=== PATIENT | female | born 1945 | race Caucasian/White ===

== ENCOUNTER → 2018-10-18 11:42 | Outpatient (CLI) | payer MEDICARE, SELFPAY ==
--- NOTE | 2018-10-18 | DI.MRI.S_ITS ---
PROCEDURE: MR LUMBAR SPINE WO CON INDICATIONS: LUMBAR SPINE PAIN TECHNIQUE: Noncontrast sagittal T1 spin echo and T2 fast echo, coronal T2, sagittal STIR, axial T1 and T2 fast spin echo through the lumbar spine. COMPARISON: [facility], MR, L-SPINE WITH AND WITHOUT CONTR, 06/07/2011, 14:18. [facility] Outside Film, RG, SPINE LUMB 2 OR 3VW, 06/22/2018, 14:35. FINDINGS: Image quality: Excellent. Alignment and Curvature: 5 lumbar type vertebral bodies are present by plain film. There is moderate to severe leftward curvature of the mid/upper lumbar spine. There is mild, grade 1 retrolisthesis of T12 on L1, and L1 on L2. Mild grade 1 anterolisthesis of L4 on L5 and L5 on S1. Bone Marrow: Marrow is of normal overall signal. No acute vertebral body compression fractures. Left-sided L4-L5 pars interarticularis defect. Bilateral L5-S1 pars interarticularis defects. No change in atypical L5 hemangioma. Mild reactive signal within the endplates adjacent to the T10-T11, T11-12, T12-L1, L1-L2, L2-L3, L3-L4, and L4-L5 intervertebral discs is present, increased from the prior examination. Increased, moderate reactive signal within the endplates adjacent to the L5-S1 intervertebral disc is present. Spinal Cord: Conus medullaris terminates at the L1-L2 disc space level. Visualized cord demonstrates normal signal and size. Paraspinous Soft Tissues: No paravertebral masses. L1-L2: Severe disc height loss and desiccation. Mild diffuse disc bulge. Mild bilateral facet and ligamentum flavum hypertrophy. Moderate canal stenosis. Severe subarticular right and mild subarticular left foraminal stenosis. No change. Right-sided intraforaminal L1 nerve root flattening. L2-L3: Moderate disc height loss and desiccation. Mild diffuse disc bulge/osteophyte with superimposed broad-based left lateral protrusion. Moderate bilateral facet and ligamentum flavum hypertrophy. Increased, severe canal stenosis. No change in moderate subarticular left and severe subarticular right foraminal stenosis. Right intraforaminal L2 nerve root flattening. No change. L3-L4: Moderate disc height loss and desiccation. Mild diffuse disc bulge. Moderate bilateral facet and ligamentum flavum hypertrophy. Increased, severe canal stenosis. No change in moderate subarticular left foraminal stenosis. Increased, severe subarticular right foraminal stenosis with intraforaminal L3 nerve root flattening on the right. L4-L5: Moderate disc height loss and desiccation. Moderate diffuse disc bulge with superimposed small broad-based left far lateral protrusion/osteophyte. Moderate bilateral facet and ligamentum flavum hypertrophy. Increased, severe canal stenosis. Increased, severe subarticular left foraminal stenosis. No change in moderate subarticular right foraminal stenosis. Flattening deformity of the left L4 nerve root within the neural foramen. L5-S1: Severe disc height loss and desiccation. Mild diffuse disc bulge. Moderate bilateral facet hypertrophy. No significant canal stenosis. Increased, severe subarticular foraminal stenosis bilaterally with new bilateral L5 nerve root flattening. IMPRESSION: 1. Leftward curvature of the lumbar spine. 2. Left-sided L4-L5 and bilateral L5-S1 pars interarticularis defects. 3. Multilevel spondylolistheses. 4.Multilevel degenerative disc and facet disease, as well as ligamentum flavum hypertrophy and epidural lipomatosis. 5. Multilevel canal stenoses, worst at L2-L3, L3-L4, and L4-L5, where there are severe canal stenoses present. 6. Multilevel foraminal stenoses, worst at L1-L2 on the right, L2-L3 on the right, L3-L4 on the right, L4-L5 on the left, and L5-S1 bilaterally, where there is associated intraforaminal nerve root flattening. Recommend correlation with clinical symptoms to ascertain relevance of these findings. Dictated by: Moy Mendez M.D. on 10/18/2018 at 13:31 Approved by: Moy Mendez M.D. on 10/18/2018 at 13:47
== END ==
PROVIDERS: PCP Family Medicine Geriatric Medicine; Visit Provider Orthopaedic Surgery Orthopaedic Surgery of the Spine
DX: M54.5 Low back pain (principal); M43.06 Spondylolysis, lumbar region; M43.07 Spondylolysis, lumbosacral region; M51.36 Other intervertebral disc degeneration, lumbar region; M51.37 Other intervertebral disc degeneration, lumbosacral region; M48.061 Spinal stenosis, lumbar region without neurogenic claudication; M48.07 Spinal stenosis, lumbosacral region; E88.2 Lipomatosis, not elsewhere classified
CPT/HCPCS: 72148

== ENCOUNTER → 2018-12-24 19:27 | Outpatient (REF) | payer MEDICARE, SELFPAY ==
[2018-12-24 19:48] LABS: Add Manual Diff / Slide Review NO; Basophils Absolute Auto 100 /uL (0-100); Basophils Percent Auto 1.2 % (0-2); Eosinophils Absolute Auto 100 /uL (0-450); Eosinophils Percent Auto 1.4 % (2-4); Hematocrit 36.8 % (36-46); Hemoglobin 11.9 g/dL (12.0-16.0); Lymphocytes Absolute Auto 1200 /uL (1100-4500); Lymphocytes Percent Auto 19.1 % (25-40); Mean Corpuscular HGB Conc 32.4 % (30-36); Mean Corpuscular Hemoglobin 26.8 PG (26-34); Mean Corpuscular Volume 82.7 fL (80-100); Monocytes Absolute Auto 400 /uL (0-900); Monocytes Percent Auto 6.2 % (3-14); Neutrophils Absolute Auto 4700 /uL (1500-7000); Neutrophils Percent Auto 72.1 % (50-75); Platelet Count 298 X10^3/uL (150-400); Red Blood Cell Count 4.45 X10^6/uL (4.0-5.2); White Blood Cell Count 6.5 X10^3/uL (4.5-11.0)
[2018-12-24 20:00] LABS: Blood Urea Nitrogen 18 mg/dL (7-17); Calcium 9.2 mg/dL (8.4-10.2); Carbon Dioxide 25 mmol/L (22-32); Chloride 97 mmol/L (98-107); Estimated Glomerular Filt Rate > 60.0 mL/min (>60); Glucose 90 mg/dL (80-110); HEMOLYSIS < 15 (0-50); Potassium 4.4 mmol/L (3.4-5.1); Sodium 132 mmol/L (137-145)
== END ==
LOC: LAB 19:27
PROVIDERS: PCP Family Medicine Geriatric Medicine; Visit Provider Family Medicine Geriatric Medicine
DX: Z01.812 Encounter for preprocedural laboratory examination (principal)
CPT/HCPCS: 80048; 85025

== ENCOUNTER 2019-01-01 06:21 | Inpatient (IN) | payer MEDICARE, SELFPAY ==
[2018-12-18 10:04] VITALS: BMI 29.2
[2019-01-01] VITALS (19 sets, daily range): BP systolic 85–164; BP diastolic 47–77; PULSE 69–100; RESP 14–18; TEMP 35.8–36.9; O2SAT 84–100; BMI 29.2
[2019-01-01] MEDS: LACTATED RINGERS 1,000 ML 42 ML IV ×3 (07:00→13:08)
--- NOTE | 2019-01-01 07:32 | PM.PREOP ---
Pre-operative Note Interval Note History & Physical reviewed/Exam performed by Physician: Yes Changes to H&P: No
--- NOTE | 2019-01-01 07:41 | P.OP_ITS ---
Operative Date/Time/Diagnoses Date of procedure: 01/01/19 Time of procedure: 14:35 Pre-op diagnosis: Lumbar stenosis with radiculopathy lumbar scoliosis Post-op diagnosis: same Procedure & Clinicians Procedure: L1-2, L2-3, L3-4 anterior fusion with cages L4-5, L5-S1 TLIF (post/posterior innerbody fusion) with cages screws L3, L4, L5, S1 L34, L45, L5S1 laminectomies microscope icbg aspirate placement of epidural catheter placement of epidural catheter Same procedure as scheduled: Yes Indications: 73 year old female with intractable pain from stenosis. They had failed conservative management and requested operative intervention. Risks and benefits of surgery were discussed and appropriate consents were obtained. Surgeon: Osmar Craven Life Cycle Assessment Analyst: Lakeisha Hinkle Anesthesia Type: General Operative Notes Findings: none Closure Type: primary Specimen(s): none sent Prosthetic devices, grafts, tissues, transplants, or devices: NuVasive XLIF cages NuVasive MAS Reline screws Globus Rise cage Applied: catheter Estimated Blood Loss (mL): 50 Blood products transfused: none Procedure in detail: Patient was brought to the operating room and intubated on the table. Time-out was performed. They were then rolled over to the lateral decubitus position with the [id number]. The table was bent and they were taped down in the correct position. X-rays were taken to confirm a true AP and lateral. Preoperative antibiotics were given. The left flank was prepped and draped in standard sterile fashion. Using fluoroscopy, a 3 cm incision was made above the iliac crest. We bluntly dissected down with Metzenbaum scissors and split the 3 abdominal muscle layers. We dissected out the retroperitoneal space and using finger guidance, brought our 1st dilator down to the psoas muscle. Using neuromonitoring and fluoroscopy, we placed it through the psoas onto the L34 disc space in an anterior position and gradually pulled the dilator posteriorly along the disc space. We placed our guidewire and measured our depth for the retractor. We then dilated with the next 2 dilators and then placed our retractor over the dilators. Position was confirmed with fluoroscopy and the retractor was locked down to the bar. We opened up the retractor and checked with neuro monitoring. We then placed the harish and again checked with neuro monitoring. The retractor was opened furt her and the ALL retractor was placed. An annulotomy was performed. We then performed a complete diskectomy with ring curette, pituitary, box osteotome. A Milton was advanced across the disc space under fluoroscopy to release the lateral annulus on the opposite side. We then used sequentially larger trials and confirmed under fluoroscopy. The trials kept going anteriorly and it appeared that part of the ALL had been released. An XLIF cage was packed with Osteocel bone graft and impacted into the L34 disc space with fluoroscopy for the anterior fusion at this level. While placing this, care was taken to place the cage posterior as possible. We then removed the bend in the table and the cage was solid.The wound was irrigated. The retractor was closed down. The harish was removed. We carefully removed the retractor with direct visualization to make sure there was no neurovascular or abdominal injury. Final x-rays were taken. We then moved up a level to L2-3. We used monitoring and placed our dilators. We then placed our retractor and opened it up. We performed a complete diskectomy at this level including the lateral release on the opposite side. We trialed and placed another cage with bone graft for the anterior fusion at L2-3. The wound was irrigated. The retractor was closed and removed under direct visualization. We then moved up to the L1-2 level. We used monitoring and placed our dilators. We then placed a retractor and opened it up. We again performed a complete diskectomy at this level including the lateral release on the opposite side. We trialed and placed another cage with bone graft for the anterior fusion at L1-2. The wound was irrigated. The retractor was closed removed under direct visualization. Final x-rays were taken. The muscle fascia was closed, superficial tissue was closed. The skin was closed. Sterile dressing was placed. The patient was then rolled over on the well-padded prone position on the Soham table. The back was prepped and draped in the standard sterile fashion. Using fluoroscopy, a 8 cm longitudinal incision was made on the left side of the midline as we wanted to do our facetectomies and get as much left-sided release as possible for the curve correction later. We used Bovie to come down to and split the fascia. We then percutaneously placed our Jamshidi needles down the left pedicles of L3, L4, L5, and S1 using fluoroscopy and neural monitoring. These were changed out the guidewires. We tapped and then placed our screw shanks. We opened up the retractor at L5-S1. The soft tissue was cleared out of the gutter as well as over the lamina. We used a bur to decorticate the transverse process of L4, L5, and the sacral ala. We brought in the microscope. A combination of bur and Kerrison rongeur as were used to perform a laminectomy at this level. She had massive facet hypertrophy and par hypertrophy that had to be decompressed. We carefully decompressed across the midline and cleared out the neural foramen. We performed a partial facetectomy to open up foramen. At the end we could sweep the ball probe cephalad, caudally, and out the foramen was open. This was separate and distinct from the approach for the TLIF as we had to decompress the central canal. We then began the interbody work. The remainder of the facetectomy was performed on the right-hand side at L5-S1. The dura was carefully retracted medially as well as the exiting nerve root was retracted. Bipolar was used for hemostasis on the disc and then an annulotomy was performed. We used a combination of pituitaries, paddles, Shruti, and curettes to perform a complete diskectomy at L5-S1. We then packed bone graft into the disc space and then placed our globus Rise cage and expanded it under fluoroscopy. This was packed with more bone graft. This completed the interbody portion of the TLIF at L5S1. We then moved up a level. Again, using the microscope a laminectomy was performed at this L4-5 level clearing out past the midline as well as out the neural foramen. This was separate and distinct from just a TLIF approaches we had to decompress the entire canal which also had a massive facet cyst that had to be carefully dissected off the facet adding much more time and complexity, not just make a small approach to get in with our cage. We then began the interbody work. The remainder of the facetectomy was performed at L4-5. We carefully retracted the dura and the exiting nerve root and prepped the disc. A scalpel used to perform an annulotomy. We used pituitaries, paddles, Shruti, and curettes to perform a complete diskectomy at L4-5. This was packed with bone graft and then another globus Rise cage was inserted and expanded under fluoroscopy. This was packed with more bone graft. This completed the interbody portion of the TLIF at L45. We then went up to the L3-4 level. Our retractors were shifted over. We again used the microscope for the laminectomy. We used a bur and Kerrison to perform a laminectomy at L3-4. We could sweep past the midline to the opposite side and clear out the neural foramen. In the end, everything was open. An epidural catheter was primed with 4mL of 0.5% bupivacaine, 100 mcg fentanyl, 4 mg Duramorph, 1 mg Stadol. The dura at L3 was depressed under the cephalad lamina with a ball probe and the epidural catheter was gently advanced 6 cm cephalad. The retractor was removed. The wound was copiously irrigated. The Tulip heads were put on the screws and a ernesto was placed from L3 through S1 for posterior stabilization for now. A small stab incision was made over the PSIS and a Jamshidi needle was placed into the iliac crest and several mL of bone marrow was aspirated. This was mixed with our locally harvested bone graft as well as the remaining Osteocel and placed in the posterolateral gutter for posterolateral portion of the TLIF fusion at L45 and L5S1. The fascia was then closed. The epidural was then injected without resistance. The catheter was pulled and we closed more over the fascia. We then went to the right side. Using fluoroscopy and neural monitoring, a 3cm incision was made over L3-4. We percutaneously placed Jamshidi needles down the right pedicles of L3 and L4. We switched the guidewires, tapped and placed our screws. A ernesto was measured and placed and locked down. This was done for extra stability for the L3-4 cage. Vancomycin powder was placed in the wound. The superficial and skin were closed. Sterile dressing was placed. The patient was then rolled over, extubated, brought to the recovery room with no complications. Complications: none Condition: stable Disposition: PACU Plan for aftercare: Inpatient. Up with physical therapy. Plan to return in 2 days for the 2nd half of the surgery with the remainder of the instrumentation and posterior fusion.
[2019-01-01] MEDS: CEFAZOLIN 2 GM/100 ML FROZ.PIGGY IV ×3 (07:53→20:19)
--- NOTE | 2019-01-01 08:30 | SUR.OPER ---
Right lateral on padded OR table. Head on pillow, gel axillary roll, pillow to support left arm. Legs flexed, pillows between legs, gel pad under down leg and ankle. Multiple passes of 3 inch cloth tape across shoulder, hip, upper and lower legs to secure patient on OR table.
[2019-01-01] MEDS: SODIUM CHLORIDE 0.9% 1,000 ML, GENTAMICIN 80 MG IRR ×2 (08:45)
[2019-01-01] MEDS: THROMBIN (RECOMBINANT) 5,000 UNIT VIAL 5000 UNIT TOP (08:46)
[2019-01-01] MEDS: VANCOMYCIN 1,000 MG VIAL 1000 MG TOP (08:50)
[2019-01-01] MEDS: BUPIVACAINE 0.5% (PF) 4 ML, MORPHINE-PF 4 MG, BUTORPHANOL 1 MG, fentaNYL 100 MCG INJ (08:51)
--- NOTE | 2019-01-01 12:43 | SUR.OPER ---
Prone on spine table, head in foam head support, padded chest and pelvic supports, gel pad at knees, lower legs supported by pillows; nipples, genitalia and toes free of pressure, arms secured on foam padded arm boards at <90 degrees abduction. Tape over blanket at thigh secured to table.
--- NOTE | 2019-01-01 14:46 | DI.RAD.S_ITS ---
PROCEDURE: XR LUMBAR SPINE MIN 4V INDICATIONS: L1-2M L2-3, L3-4 XLIF---L4-5, L5-S1 TLIF TECHNIQUE: 4 views of the lumbar spine acquired. COMPARISON: [facility] Outside Film, RG, SPINE LUMB 2 OR 3VW, 06/22/2018, 14:35. FINDINGS: Intraoperative fluoroscopy images demonstrate discectomy and posterior fusion at L3-L4, L4-L5 and L5-S1. Disc prosthesis are noted at L4-L5 and L5-S1. There is also discectomy at L1-L2 and L2-L3. IMPRESSION: Discectomy and posterior fusion in lumbar spine. Dictated by: Arian Lambert M.D. on 01/01/2019 at 15:12 Approved by: Arian Lambert M.D. on 01/01/2019 at 15:15
[2019-01-01] MEDS: fentaNYL 100 MCG/2 ML INJ 50 MCG IV ×2 (14:55→15:00)
[2019-01-01] MEDS: HYDROMORPHONE 2 MG INJ 0.5 MG IV ×4 (15:15→15:41)
[2019-01-01] MEDS: HYDROMORPHONE 1 MG INJ 0.5 MG IV ×2 (16:08→18:07)
[2019-01-01] MEDS: LACTATED RINGERS 1,000 ML 125 ML IV (16:39)
--- NOTE | 2019-01-01 16:43 | PC.NURSE ---
Addendum entered by Mariaa Montoya R.N. 01/01/19 23:31: Pt tolerating PO [place], pain well controlled. Reviewed home gabapentin dosing. 300mg + 100mg caps QID scheduled, updated. Ivet in room. Updated on POC. Original Note: Admission Pt arrived from PACU after extended orthopedic procedure, Pt arrives in stretcher, drowsy but rates pain 9/10 to back. Feels the IV pain control from PACU helped but is not lasting at all what she felt it should. CMS intact, weakness to BLE and pain with movement. 2L o2 in place for hypxia after narcotics. No home O2 use. Denies nausea, declines snack. Ice chips and ice water at bedside. Friend rooming in, dressing to Back x2 CDI. IVF started, per Emar. BA active.
[2019-01-01] MEDS: HYDROCODONE/ACET 5/325 TABLET 2 TAB PO (20:17)
[2019-01-01] MEDS: CELECOXIB 200 MG CAPSULE 400 MG PO (20:19)
[2019-01-01] MEDS: DOCUSATE 100 MG CAPSULE PO (22:31)
[2019-01-02] VITALS (7 sets, daily range): BP systolic 132–146; BP diastolic 66–82; PULSE 88–99; RESP 14–20; TEMP 36.2–37.3; O2SAT 92–100
[2019-01-02] MEDS: HYDROMORPHONE 0.5 MG INJ 0.2 MG IV (00:03)
[2019-01-02] MEDS: HYDROCODONE/ACET 5/325 TABLET 2 TAB PO ×3 (00:47→10:55)
[2019-01-02] MEDS: LACTATED RINGERS 1,000 ML 125 ML IV (01:10)
[2019-01-02] MEDS: ONDANSETRON 4 MG/2 ML INJ IV ×3 (02:10→19:08)
[2019-01-02] MEDS: CEFAZOLIN 2 GM/100 ML FROZ.PIGGY IV (03:52)
[2019-01-02 06:03] LABS: Hematocrit 27.1 % (36-46); Hemoglobin 9.1 g/dL (12.0-16.0)
[2019-01-02] MEDS: LEVOTHYROXINE 50 MCG TABLET PO (06:16)
[2019-01-02] MEDS: GABAPENTIN 400 MG CAPSULE PO ×4 (08:05→20:37)
[2019-01-02] MEDS: VITAMIN B COMPLEX 1 CAPSULE 1 CAP PO (08:05)
[2019-01-02] MEDS: ASPIRIN EC 81 MG TABLET PO (08:05)
[2019-01-02] MEDS: CHOLECALCIFEROL (VITAMIN D3) 1,000 UNIT TABLET 1000 UNIT PO (08:05)
[2019-01-02] MEDS: CELECOXIB 200 MG CAPSULE PO ×2 (08:05→20:36)
[2019-01-02] MEDS: hydroCHLOROthiazide 12.5 MG CAPSULE PO (08:05)
[2019-01-02] MEDS: PANTOPRAZOLE 20 MG TABLET PO (08:05)
[2019-01-02] MEDS: LISINOPRIL 10 MG TABLET PO (08:05)
--- NOTE | 2019-01-02 08:10 | P.PN_ITS ---
Subjective Date Patient Seen: 01/02/19 Time Patient Seen: 08:08 Interval history: She is doing great. Leg feels fantastic. Some back pain, but manageable with pain medication. Exam Vital Signs (past 8 hours): - 01/02/19 04:13 01/02/19 08:05 Temperature 98.1 F Pulse Rate 96 H 96 H Respiratory Rate 16 Blood Pressure 145/77 H 145/77 H Pulse Oximetry 100 Oxygen Delivery Method Nasal Cannula Oxygen Flow Rate 2 Const Orientation: alert and oriented x3 Back/Spine/Pelvis Other: Dressing CDI. 5/5 motor both lower extremities except for old longs tanding left 4/5 footdrop Objective Labs Result Diagrams: 01/02/19 05:40 Labs: Laboratory Results - last 24 hr 01/02/19 05:40 Hgb 9.1 L Hct 27.1 L Assessment & Plan Post-op Postoperative Procedures Operation Date: 01/01/19 07:45 Actual Procedures Side Surgeon p L1-2,L2-3 Anterior Instru. fusion, L4-5,L5-S1 Posterior Instru. fusion, L3-4 Lamincetomy Osmar Craven MD she is doing well after stage I of her 2 part surgery. Plan is return to the operating room tomorrow for the T12 through S1 posterior instrumented fusion. Risks and benefits were again discussed and consents obtained today. Her H&H was lower than expected. We will check this again tomorrow as well as get a type and screen. Remove Mckoy today. Operation Date: 01/03/19 07:45 <No data on this case meets the specified criteria> Quality VTE Deep Vein Thrombosis/Pulmonary Embolism Present on Admission: No
[2019-01-02] MEDS: DOCUSATE 100 MG CAPSULE PO ×2 (09:33→20:37)
--- NOTE | 2019-01-02 11:22 | PC.NURSE ---
Pt alert and oriented with friend Ivet at the bedside and rooming in. Pt lives [place] and will be having part 2 of her surgery tomorrow. Talked with Pt about plan to remove anne after P.T. gets Pt up to chair. Pt refused removal of Anne today and states she doesn't want the anne removed since it will be replaced again tomorrow morning and she doesn't feel that she will be moving well enough before then. Pt has had nausea this morning and was not able to eat bkfst. Pt was able to take meds with adeline vasile and crackers but states she plans to take it slow to prevent another emesis episode.
--- NOTE | 2019-01-02 11:44 | CM.DANOTE ---
DCP: Case received, EMR reviewed and met with patient. Introduced self and role. DCP template completed with information currently available. Patient is a 73 year old female who admitted yesterday morning to the care of the surgical team. PCP: Howard Prado. Payer: confirmed; Medicare/[employer]. Patient came to hospital for procedure. Will be having second surgery tomorrow. She is having L1-2, L2-3, L3-4, Laminectomy. Patient has had history of numbness in her feet, as well as bilateral lower extremity weakness. Met with patient in room. Alert and oriented. Friend, Ivet, in room. She is visiting, lives in [facility]. patient lives alone on [place], and is a . Her in 2016, no other family in the area. Patient stated that she is independent at home, but knows that she will need skilled after surgery. She is having second surgery tomorrow. She is Medicare, and anticipate that she will be here for a few days. Called [facility], spoke to Reji in admissions, and let him know that this machine adjuster leader case trim would fax over face sheet. Gave information regarding patient over phone. Encouraged patient to make a second choice of facilities, but did not wish to do this right now. P: DCP to follow closely. Plan is skilled at discharge, and hopeful for [facility]. Aixa Christopher RN/Office Equipment Technician
--- NOTE | 2019-01-02 13:05 | OT.IP.TRT ---
Current Diagnoses Other secondary scoliosis, lumbar region (01/01/19) Spondylolisthesis, lumbar region (01/01/19) Spinal stenosis, lumbar region with neurogenic claudication (01/01/19) Surgery Performed Operation Date: 01/01/19 07:45 Actual Procedures p L1-2,L2-3 Anterior Instru. fusion, L4-5,L5-S1 Posterior Instru. fusion, L3-4 Lamincetomy - Osmar Craven MD Operation Date: 01/03/19 07:45 <No data on this case meets the specified criteria> Occupational Therapy Treatment Note M3 OT- IP Subjective and Pain Start: 01/02/19 13:05 Freq: Status: Active Protocol: Document 01/02/19 13:05 MILE (Rec: 01/02/19 13:08 [email or web address] [email or web address]) OT- Subjective Occupational Therapy Visit Type Type Administrative Note Visit Start Time 13:00 Notes OT referral received. Pt admitted yesterday for Stage 1 of 2 stage lumbar fusion. Will hold OT evaluation of self care skills until after Stage 2 surgery scheduled for 01/03/19. No Charge.
--- NOTE | 2019-01-02 14:09 | PT.IPTN ---
Current Diagnoses Other secondary scoliosis, lumbar region (01/01/19) Spondylolisthesis, lumbar region (01/01/19) Spinal stenosis, lumbar region with neurogenic claudication (01/01/19) Surgery Performed Operation Date: 01/01/19 07:45 Actual Procedures p L1-2,L2-3 Anterior Instru. fusion, L4-5,L5-S1 Posterior Instru. fusion, L3-4 Lamincetomy - Osmar Craven MD Operation Date: 01/03/19 07:45 <No data on this case meets the specified criteria> Physical Therapy Treatment Note M3 PT-IP Subjective Start: 01/02/19 13:44 Freq: NEEDED Status: Active Protocol: Document 01/02/19 13:53 SA (Rec: 01/02/19 14:08 [id number]) Subjective Physical Therapy Visit Type Type Treatment Note Visit Start Time 13:25 Visit Stop Time 13:50 Total Visit Minutes 25 Notes Pt up in chair finishing lunch , c/o nausea. Friend present. Number of QUALITY WORKER Visits 1 Physical Therapy Visit Comments Patient Comments Pt feels pain medication is making her nauseus, rates back pain as 5/10. Wants t get back to bed. Therapy Pain Assessment Pain When Pain Assessed During Mobility Pain Present Pain Present Pain Reported Location back Intensity 5 Scale Used Numeric (1 - 10) Pain Management Techniques Modification of Treatment Re-positioning Timing of Activity with Medications M4 PT-IP Mobility and Gait Start: 01/02/19 13:44 Freq: NEEDED Status: Active Protocol: Document 01/02/19 13:53 SA (Rec: 01/02/19 14:08 [id number]) PT-Bed Mobility Assessment Rolling Type of Rolling Log Rolling Sit to Supine Sit to Supine Minimal Assistance Scooting Scooting to Edge of Bed Minimal Assistance Scooting Up and Down in Bed Minimal Assistance PT-Transfer Assessment Sit to and From Stand Sit to and from Stand Minimal Assistance Equipment Transfer Assistive Device Gait Belt Front Wheeled Walker Orthotic/Prosthetic Devices or Brace: No Transfers Transfer Destination Bed Transfer Technique Stand Step Pivot Transfer Ability Level of Assist Contact Guard Assistance Comments Mobility Comments Stand pivot tx from chair to EOB with FWW and CGA. Sit to supine with Min A and Mod cues for log roll technique. Pt with some difficulty following directions. Min A for scooting up in bed and positioning. Verbal and visual review of spinal precautions with patient and her friend. Gait Assessment Comments Gait Comments Declined gait today, citing nausea. M6 PT-IP Treatment Start: 01/02/19 13:44 Freq: NEEDED Status: Active Protocol: Document 01/02/19 13:53 (Rec: 01/02/19 14:08 [id number]) Physical Therapy Treatment Exercises Exercises Ankle Pumps Gluteal Sets Quad Sets Education Education Provided Precautions Safety M7 PT-IP Assessment and Plan Start: 01/02/19 13:44 Freq: NEEDED Status: Active Protocol: Document 01/02/19 13:53 (Rec: 01/02/19 14:08 [id number]) PT Summary Assessment and Plan Summary Assessment Summary Pt with one episode of dry heaving after drinking some juice, otherwise tolerated treatment well but declined attempting to ambulate. Min A with bed mobility and transfers and some difficulty following directions. Frequency of Treatment Frequency Of Treatment Twice a Day Treatment Plan Physical Therapy Treatment Plan Bed Mobility Training Transfer Training Gait Training Therapeutic Exercise Balance Retraining Post Op Education Discharge Planning Hot or Cold Pack Neuromuscular Re-ed Coordination Retraining Manual Therapy
--- NOTE | 2019-01-02 15:26 | PT.IIE ---
Current Diagnoses Other secondary scoliosis, lumbar region (01/01/19) Spondylolisthesis, lumbar region (01/01/19) Spinal stenosis, lumbar region with neurogenic claudication (01/01/19) Surgery Performed Operation Date: 01/01/19 07:45 Actual Procedures p L1-2,L2-3 Anterior Instru. fusion, L4-5,L5-S1 Posterior Instru. fusion, L3-4 Lamincetomy - Osmar Craven MD Operation Date: 01/03/19 07:45 <No data on this case meets the specified criteria> Surgical History (Last Updated 12/18/18 @ 10:50 by Rebekah Damon RN) History of arthroplasty of left knee (Acute ~2007) History of esophagogastroduodenoscopy (EGD) (Acute) Hx of parotidectomy (Acute) Hx of repair of right rotator cuff (Acute ~2009) Hx of tonsillectomy (Acute) S/P cervical spinal fusion (Acute 06/08/17) S/P right unicompartmental knee replacement (Acute ~2009) Status post cataract extraction of both eyes with insertion of intraocular lens (Acute) Medical History (Last Updated 12/18/18 @ 10:50 by Rebekah Damon RN) Ankle fracture, right (Acute) 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) Former smoker (Acute) GERD (gastroesophageal reflux disease) (Acute) Gait disturbance (Acute) Kidney stones (Acute) Nasal fracture (Acute ~2006) SCC (squamous cell carcinoma) (Acute) Status post gamma knife treatment (Acute) Physical Therapy Inpatient Evaluation/Re-Eval M1 PT/OT-IP Prior Functional Status Start: 01/02/19 13:05 Freq: NEEDED Status: Active Protocol: Document 01/02/19 12:00 (Rec: 01/02/19 15:01 [email or web address]) Medical Review Prior Functional Status Medical History Reviewed Yes Diet/Fluid Consistency Regular Communication No deficits noted Mobility and Gait Pt was an independent ambulator at home and community without AD. pt states she started using 4WW since this Nov due to increased in back pain. Pt was able to drive as well. Activities of Daily Living and IADL's Pt lives alone and independent for ADLs and IADLs without using AD until this Nov due to increased back pain. Pt used a 4ww to amb within home. Social History Household Members none Living Arrangements House Number of Floors (Floors) Two Floors Number of Stairs To Enter/Railing? 3 NEL with L railing and 15 steps inside of the house with L railing Home Environment Standard Height Toilet Walk in Shower Tub/Shower Home Equipment Raised Toilet Seat Without Armrests Employment Status Retired Additional Social History Comment Pt lives alone in a 2 level home with 3 NEL with L railing in [facility]. Pt's in 2016. Pt currently has her best friend from college to be her primary CG as needed . Pt primarily stays on main floor but she needs to use walk in shower from upstair since she does not like her jettub in the bathroom on the main floor. Pt was indepndent for all ADLs and IADLs, but she started to use 4ww at home since Nov due to increased back pain. PMH includes grade II brain tumor (meningioma) in 2001 and pt states it has been growing at her L frontal lobe and required to do check up every 6 months. Pt also stated she had L sided weakness for years due to her brain tumor Pt [facility] prior to d/c home M1 PT/OT-IP Prior Functional Status Start: 01/02/19 13:44 Freq: NEEDED Status: Active Protocol: Document 01/02/19 12:00 (Rec: 01/02/19 15:01 [email or web address]) M2 PT-IP Current Condition Start: 01/02/19 13:44 Freq: NEEDED Status: Active Protocol: Document 01/02/19 12:00 (Rec: 01/02/19 15:01 [email or web address]) Physical Therapy Current Condition Current Condition Evaluation Date 01/02/19 Treatment Diagnosis L1-l3 ant fusion, L4-s1 post fusion, L3-L4 laminectomy, impaired gait Onset Date 01/01/19 Precautions Lumbar Precautions Log Roll No Twisting Limit Bending Lifting Restriction of 10 lbs Gait Belt above Incisional Area Weight Bearing Status Weight Bearing Status Weight Bear as Tolerated M3 PT-IP Subjective Start: 01/02/19 13:44 Freq: NEEDED Status: Active Protocol: Document 01/02/19 13:53 SA (Rec: 01/02/19 14:08 SA [id number]) Subjective Physical Therapy Visit Type Type Treatment Note Visit Start Time 13:25 Visit Stop Time 13:50 Total Visit Minutes 25 Notes Pt up in chair finishing lunch , c/o nausea. Friend present. Number of [employer] Visits 1 Physical Therapy Visit Comments Patient Comments Pt feels pain medication is making her nauseus, rates back pain as 5/10. Wants t get back to bed. Therapy Pain Assessment Pain When Pain Assessed During Mobility Pain Present Pain Present Pain Reported Location back Intensity 5 Scale Used Numeric (1 - 10) Pain Management Techniques Modification of Treatment Re-positioning Timing of Activity with Medications M4 PT-IP Mobility and Gait Start: 01/02/19 13:44 Freq: NEEDED Status: Active Protocol: Document 01/02/19 13:53 SA (Rec: 01/02/19 14:08 [id number]) PT-Bed Mobility Assessment Rolling Type of Rolling Log Rolling Sit to Supine Sit to Supine Minimal Assistance Scooting Scooting to Edge of Bed Minimal Assistance Scooting Up and Down in Bed Minimal Assistance PT-Transfer Assessment Sit to and From Stand Sit to and from Stand Minimal Assistance Equipment Transfer Assistive Device Gait Belt Front Wheeled Walker Orthotic/Prosthetic Devices or Brace: No Transfers Transfer Destination Bed Transfer Technique Stand Step Pivot Transfer Ability Level of Assist Contact Guard Assistance Comments Mobility Comments Stand pivot tx from chair to EOB with FWW and CGA. Sit to supine with Min A and Mod cues for log roll technique. Pt with some difficulty following directions. Min A for scooting up in bed and positioning. Verbal and visual review of spinal precautions with patient and her friend. Gait Assessment Comments Gait Comments Declined gait today, citing nausea. M5 PT-IP Objective Assessments Start: 01/02/19 13:44 Freq: NEEDED Status: Active Protocol: Document 01/02/19 12:00 (Rec: 01/02/19 15:01 [email or web address]) Orientation Orientation/Cognition Level of Alertness Alert Orientation Name Age Birthday Month Date Year Day of Week Place Situation Language Function Ability No Deficits Noted Safety Awareness Understands Safety Issues Memory Description No Deficits Noted Gross Range of Motion Upper Extremity ROM Assessment Within Functional Limits Lower Extremity ROM Assessment Within Functional Limits Strength Upper Extremity Strength Assessment Left Impaired Lower Extremity Strength Assessment Left Impaired Comments Strength Comments R sided body strength 5/5 L sided body strength 4-/5 Coordination Assessment Gross Coordination Gross Coordination WNL Sensation Assessment Sensation Gross Sensation WNL Light Touch Intact Proprioception (Position) Intact M6 PT-IP Treatment Start: 01/02/19 13:44 Freq: NEEDED Status: Active Protocol: Document 01/02/19 13:53 SA (Rec: 01/02/19 14:08 SA [id number]) Physical Therapy Treatment Exercises Exercises Ankle Pumps Gluteal Sets Quad Sets Education Education Provided Precautions Safety M7 PT-IP Assessment and Plan Start: 01/02/19 13:44 Freq: NEEDED Status: Active Protocol: Document 01/02/19 11:00 HH (Rec: 01/02/19 12:16 HH [id number]) PT Summary Assessment and Plan Potential Rehabilitation Potential Good Status of Condition at Evaluation Evolving Summary Impairments Strength Balance Cognition Bed Mobility Transfers Gait Activity Tolerance Assessment Summary PPt is a very pleasant 73yo female POD #1 L1-l3 ant fusion, L4-s1 post fusion, L3-L4 laminectomy. Pt is going to have 2nd sx for T12-S1 TLIF tomorrow. pt's college friend was at bedside who is also going to be her CG as needed for 2-3 weeks once she d/c back to home. Pt experienced nausea feeling since yesterday but she was able to stand step pivot to bedside chair with CGA and FWW. Pt has good understanding of transfer techniques, but her mobility is limited at this point due to severe pain. Pt is far from her baseline, along with a long flight of stairs at home for her to negotiate. Pt will be reeval tomorrow again after 2nd sx. Pt expects to be d/c [facility] for short term rehab prior to d/c home. [ End ] Goals Bed Mobility Goal CGA Transfer Goal CGA Front Wheeled Walker Gait Goal CGA Front Wheel Walker Gait Distance 100 Other Goals climb 15 steps with L rails SBA Days to Meet Goals 10 Frequency of Treatment Frequency Of Treatment Once a Day Treatment Plan Physical Therapy Treatment Plan Bed Mobility Training Transfer Training Gait Training Therapeutic Exercise Balance Retraining Discharge Planning Hot or Cold Pack Other Recommendations and Next Treatment transfer and gait training as melba review precautions log roll bed mob Recommendations To Nursing Amount of Assist Needed 1 Person Assist Discharge Recommendations PT Discharge Recommendations SNF Equipment Needed for Home before Discharge raised toilet seat with armrest, job development specialist,
[2019-01-02] MEDS: OXYCODONE IR 5 MG TABLET PO ×2 (16:49→20:37)
[2019-01-02] MEDS: SENNOSIDES 8.6 MG TABLET 17.2 MG PO (20:37)
[2019-01-03] VITALS (22 sets, daily range): BP systolic 120–170; BP diastolic 42–111; PULSE 80–105; RESP 10–20; TEMP 36.3–37.9; O2SAT 92–100; BMI 29.2
--- NOTE | 2019-01-03 00:34 | PC.NURSE ---
2300- Pt POD#1 T-Lift & Lami, see MD notes for details. Denies any nausea or pain at this time; incision dressing CDI; graft site on L side covered & CDI. LR off at this time. Pt is aware that MD wants anne out states why take it out when I am going to surgery tomorrow. MD aware of refusal of anne removal. Bilat foot SED's in place. PO [place] makes pt very nauseas, she would like this removed from her DEC, only taking PO oxycodone for pain at this time. 0400- Pt HR elevated> 100; temp> 100 F; C/O 6/10 pain in her back. PO oxy given although pt is NPO, small sips of water given w/ med--only enough to swallow. Will recheck temp. 0430-Temp at 99 now. Pt denies any pain or nausea.
[2019-01-03] MEDS: OXYCODONE IR 5 MG TABLET PO (03:43)
[2019-01-03] MEDS: LEVOTHYROXINE 50 MCG TABLET PO (06:03)
[2019-01-03 06:25] LABS: Hematocrit 26.3 % (36-46); Hemoglobin 8.8 g/dL (12.0-16.0)
--- NOTE | 2019-01-03 07:00 | SUR.HOLD ---
Cath secured and draining clear yellow urine at this time.
[2019-01-03] MEDS: LACTATED RINGERS 1,000 ML 42 ML IV (07:15)
--- NOTE | 2019-01-03 07:19 | PM.PREOP ---
Pre-operative Note Interval Note History & Physical reviewed/Exam performed by Physician: Yes Changes to H&P: No H&P completed within 30 days and has changed as indicated here:: H/H today stable from yesterday at 8.8/26.3. Has T&S now if needed.
[2019-01-03] MEDS: CEFAZOLIN 2 GM/100 ML FROZ.PIGGY IV ×2 (07:45→20:43)
--- NOTE | 2019-01-03 08:36 | SUR.OPER ---
Prone on spine table, head in foam head support, padded chest and pelvic supports, gel pad at knees, lower legs supported by padded knee support; nipples, genitalia and toes free of pressure, arms secured on foam padded arm boards at <90 degrees abduction. Tape over blanket at thigh secured to table.
[2019-01-03] MEDS: SODIUM CHLORIDE 0.9% 1,000 ML, GENTAMICIN 80 MG IRR (08:42)
[2019-01-03] MEDS: BUPIVACAINE 0.5% (PF) 4 ML, MORPHINE-PF 4 MG, BUTORPHANOL 1 MG, fentaNYL 100 MCG INJ (08:44)
[2019-01-03] MEDS: VANCOMYCIN 1,000 MG VIAL 1000 MG TOP (08:45)
--- NOTE | 2019-01-03 11:14 | PM.OP.1 ---
Operative Date/Time/Diagnoses Date of procedure: 01/03/19 Time of procedure: 11:14 Pre-op diagnosis: Lumbar stenosis with radiculopathy lumbar scoliosis Post-op diagnosis: same Procedure & Clinicians Procedure: T12 through L4 posterior fusion T12 through S1 posterior instrumentation iliac crest bone graft placement of epidural catheter Same procedure as scheduled: Yes Indications: 73-year-old female who underwent stage I of a two-stage scoliosis surgery 2 days ago. She was returning today for her planned 2nd half. Risks and benefits of surgery were again discussed and appropriate consent obtained. Surgeon: Osmar Craven Period[employer] Library Assistant: Melly Villatoro Anesthesia Type: General Operative Notes Findings: none Closure Type: primary Specimen(s): none sent Prosthetic devices, grafts, tissues, transplants, or devices: NuVasive MAS Reline screws Applied: catheter Estimated Blood Loss (mL): 50 Blood products transfused: none Procedure in detail: Patient brought to the operating room and intubated on the stretcher. She was rolled over the well-padded prone position on the Soham table. Her jigar were removed. The back was prepped and draped in the standard sterile fashion with Betadine for the open wound. Time-out was performed. Preoperative antibiotics were given. We used fluoroscopy for localization and then extended her incisions on both sides. We used Bovie to come down to and split the lumbodorsal fascia. We removed the ernesto from the left-hand side. We then used neural monitoring and fluoroscopy to percutaneously placed Jamshidi needles down the left pedicles of T12, L1, and L2. These were changed over the guidewires. We then used our Bovie to dissect out through the posterolateral gutter and then medially from T12-L1. The bur was used to decorticate the transverse processes and across the remaining lamina to prep for the fusion. We tapped and then the cannulated screws were placed over this. Positioning was confirmed with fluoroscopy. We then attached our towers to the L3 through S1 screws. We selected a ernesto and conformed it for positioning and placed it through the towers down into the [place] heads. We locked down our screw at S1. We then distracted between L5 and S1 and locked down the L5 screw. We then distracted further between L4 and L5 and locked the machine hostler. We then placed the remainder of our locking screws and locked everything down. The wound was irrigated with pulsatile lavage. We then made a small stab incision over the left PSIS and placed a Jamshidi needle into her pelvis. We aspirated 10 cc of bone marrow with multiple passes. This was mixed with 30 cc of bone chips and placed out in the posterolateral gutter and medially for her posterolateral fusion from T12 through L4. At epidural catheter was primed with 1 mg of state all, 4 mg of morphine, 4 mL L of 0.5% Marcaine, and 100 mcg of fentanyl. The catheter was placed under the previous laminotomy at L3-4. This was advanced approximately 5 cm cephalad. The deep fascia was closed in layers. We then injected our epidural catheter without resistance and removed it. We then went over to the right-hand side. The set screws and ernesto at L3 and L4 were removed. We percutaneously placed our Jamshidi needles down T12, L1, L2, L5, and S1. We changed out guidewires, tapped and placed our screws, all with fluoroscopy and neural monitoring. We conformed the ernesto to the right position. We placed the towers on the L3 and L4 screws that had been previously placed. We then locked down our ernesto and set screws. The wound was irrigated. The fascia was closed. Vancomycin powder was placed in the wounds. The superficial tissue was closed. The skin was closed. Sterile dressing was placed. She was then rolled over, extubated, and brought to recovery with no complications. Complications: none Condition: stable Disposition: PACU Plan for aftercare: Inpatient. Up with physical therapy. Anticipate halfway on discharge.
--- NOTE | 2019-01-03 11:20 | DI.RAD.S_ITS ---
PROCEDURE: XR LUMBAR SPINE MIN 4V INDICATIONS: POSTERIOR FUSION T12-S1 TECHNIQUE: 4 views of the lumbar spine acquired. COMPARISON: [facility], CR, XR LUMBAR SPINE MIN 4V, 01/01/2019, 8:13. [facility], CR, L-SPINE 2-3 VIEWS, 05/13/2011, 10:23. FINDINGS: Bones: 5 nonrib-bearing vertebrae are present. There is improved bony alignment after posterior fusion T12-S1. No vertebral body compression fractures. No suspicious bony lesions. The comparison study 01/01/19 showed a prior L3-S1 unilateral fusion with a contralateral L3-L4 posterior fusion and interbody disc prosthesis placement right paramedian L4-5 and L5-S1. The current study shows bilateral T12-S1 posterior fusion with transverse pedicle screws and contiguous vertical fixation rods bilaterally, with right paramedian L4-5 and L5-S1 interbody disc prosthesis devices as was previously the case. Soft tissues: Overlying bowel gas pattern is normal. No suspicious soft tissue calcifications. Flexion/extension: There is normal range of motion, with preserved normal alignment. IMPRESSION: Continued mild convex leftward scoliosis centered at the mid lumbosacral spine. Extension of prior spine fusion procedure, as discussed above now with bilateral T12-L1 transverse pedicle screws and vertical fixation rods that appear contiguous. Prior cage disc prosthesis devices at L4-5 and L5-S1, right paramedian, again present. Dictated by: Nahun Rodas M.D. on 01/03/2019 at 11:32 Approved by: Nahun Rodas M.D. on 01/03/2019 at 11:35
[2019-01-03] MEDS: HYDROMORPHONE 2 MG INJ 0.5 MG IV ×4 (11:27→11:52)
--- NOTE | 2019-01-03 11:35 | SUR.PHASEI ---
Report from Brandie
[2019-01-03] MEDS: hydrOXYzine pamoate 25 MG CAPSULE PO (11:55)
--- NOTE | 2019-01-03 12:25 | SUR.PHASEI ---
Report attempted, RN not available to call back.
[2019-01-03] MEDS: LORazepam 2 MG/ML SYRINGE IV (13:10)
--- NOTE | 2019-01-03 13:20 | SUR.PHASEI ---
Late entry: Pt had back pain treated with dilaudid and ativan, pain started at 9/10, down to 6/10. Pt initially restless and moaning, pt at 6/10, resting quietly, RR 12 and above sats 95% and above on nc 3/l. Pt transported on 02 and left with archana in stable condition.Dressing to back remained c/d/i and drain compressed and c/d/i as well.
--- NOTE | 2019-01-03 15:30 | PT.IIE ---
Current Diagnoses Other secondary scoliosis, lumbar region (01/01/19) Spondylolisthesis, lumbar region (01/01/19) Spinal stenosis, lumbar region with neurogenic claudication (01/01/19) Surgery Performed Operation Date: 01/01/19 07:45 Actual Procedures p L1-2,L2-3 Anterior Instru. fusion, L4-5,L5-S1 Posterior Instru. fusion, L3-4 Lamincetomy - Osmar Craven MD Operation Date: 01/03/19 07:45 Actual Procedures p T12-S1 Posterior Instru. fusion w/bone graft - Osmar Craven MD Surgical History (Last Updated 12/18/18 @ 10:50 by Rebekah Damon RN) History of arthroplasty of left knee (Acute ~2007) History of esophagogastroduodenoscopy (EGD) (Acute) Hx of parotidectomy (Acute) Hx of repair of right rotator cuff (Acute ~2009) Hx of tonsillectomy (Acute) S/P cervical spinal fusion (Acute 06/08/17) S/P right unicompartmental knee replacement (Acute ~2009) Status post cataract extraction of both eyes with insertion of intraocular lens (Acute) Medical History (Last Updated 12/18/18 @ 10:50 by Rebekah Damon RN) Ankle fracture, right (Acute) 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) Former smoker (Acute) GERD (gastroesophageal reflux disease) (Acute) Gait disturbance (Acute) Kidney stones (Acute) Nasal fracture (Acute ~2006) SCC (squamous cell carcinoma) (Acute) Status post gamma knife treatment (Acute) Physical Therapy Inpatient Evaluation/Re-Eval M1 PT/OT-IP Prior Functional Status Start: 01/02/19 13:05 Freq: NEEDED Status: Active Protocol: Document 01/02/19 12:00 (Rec: 01/02/19 15:01 [id number]) Medical Review Prior Functional Status Medical History Reviewed Yes Diet/Fluid Consistency Regular Communication No deficits noted Mobility and Gait Pt was an independent ambulator at home and community without AD. pt states she started using 4WW since this Nov due to increased in back pain. Pt was able to drive as well. Activities of Daily Living and IADL's Pt lives alone and independent for ADLs and IADLs without using AD until this Nov due to increased back pain. Pt used a 4ww to amb within home. Social History Household Members none Living Arrangements House Number of Floors (Floors) Two Floors Number of Stairs To Enter/Railing? 3 NEL with L railing and 15 steps inside of the house with L railing Home Environment Standard Height Toilet Walk in Shower Tub/Shower Home Equipment Raised Toilet Seat Without Armrests Employment Status Retired Additional Social History Comment Pt lives alone in a 2 level home with 3 NEL with L railing in [facility]. Pt's in 2016. Pt currently has her best friend from college to be her primary CG as needed . Pt primarily stays on main floor but she needs to use walk in shower from upstair since she does not like her jettub in the bathroom on the main floor. Pt was indepndent for all ADLs and IADLs, but she started to use 4ww at home since Nov due to increased back pain. PMH includes grade II brain tumor (meningioma) in 2001 and pt states it has been growing at her L frontal lobe and required to do check up every 6 months. Pt also stated she had L sided weakness for years due to her brain tumor Pt [facility] prior to d/c home M1 PT/OT-IP Prior Functional Status Start: 01/02/19 13:44 Freq: NEEDED Status: Active Protocol: Document 01/03/19 15:30 AB (Rec: 01/03/19 16:58 AB [id number]) Medical Review Prior Functional Status Medical History Reviewed Yes Diet/Fluid Consistency Regular Communication able to make needs known. Mobility and Gait pt stated that she is independent with all mobilities and ambulation without AD but has used a FWW for the last month due to LBP. Social History Household Members none Living Arrangements House Number of Floors (Floors) Two Floors Number of Stairs To Enter/Railing? 3 NEL with L railing and 15 steps inside of the house with L railing Home Environment Standard Height Toilet Walk in Shower Home Equipment Front Wheel Walker Raised Toilet Seat Without Armrests Shower Seat without Backrest Hand Held Shower Employment Status Retired M2 PT-IP Current Condition Start: 01/02/19 13:44 Freq: NEEDED Status: Active Protocol: Document 01/03/19 15:30 AB (Rec: 01/03/19 16:58 AB [id number]) Physical Therapy Current Condition Current Condition Evaluation Date 01/03/19 Treatment Diagnosis s/p T12-L4 post fusion/ instrumentation; difficulty in walking Onset Date 01/01/19 Precautions Lumbar Precautions Log Roll No Twisting Limit Bending Lifting Restriction of 10 lbs Gait Belt above Incisional Area Other Precautions Falls M3 PT-IP Subjective Start: 01/02/19 13:44 Freq: NEEDED Status: Active Protocol: Document 01/03/19 15:30 AB (Rec: 01/03/19 16:58 AB [id number]) Subjective Physical Therapy Visit Type Type Initial Evaluation Visit Start Time 15:30 Visit Stop Time 16:15 Total Visit Minutes 45 Notes pt underwent Part 2 of back surgery today (T12 to L4 posterior fusion / instrumentation). pt underwent Part 1 of back surgery 01/01/19 ( L1-4 anterior fusion, L4-S1 TLIF). PT eval ordered 01/01/19 and MD completed/cancelled previous PT order and received new PT eval order s/p part 2 back surgery. Physical Therapy Visit Comments Patient Comments pt agreeable to do PT Therapy Pain Assessment Pain When Pain Assessed At Rest Pain Present Pain Present Pain Reported Location back Intensity 3 Scale Used Numeric (1 - 10) Pain Management Techniques Re-positioning Timing of Activity with Medications M4 PT-IP Mobility and Gait Start: 01/02/19 13:44 Freq: NEEDED Status: Active Protocol: Document 01/03/19 15:30 AB (Rec: 01/03/19 16:58 AB [id number]) PT-Bed Mobility Assessment Rolling Type of Rolling Log Rolling Level of Assist Maximal Assistance 1 Person Assistance Supine to Sit Supine to Sit Maximum Assistance 1 Person Assistance Bedrails Sit to Supine Sit to Supine Maximum Assistance 1 Person Assistance 2 Person Assistance Bedrails Scooting Scooting to Edge of Bed Maximum Assistance Scooting Up and Down in Bed Maximum Assistance PT-Transfer Assessment Sit to and From Stand Sit to and from Stand Moderate Assistance Maximum Assistance 1 Person Assistance Comments Mobility Comments pt completed bed mobility supine to sit max A and max cues for log roll technique. pt was able to sit on EOB min A and cues. assisted with scooting towards EOB max A and cues. pt stated that she is really tired and wants to lay back in bed. pt agreed to stand to position in bed. completed sit to stand mod to max A and max cues. pt was able to take side steps towards HOB mod to max A and max cues using FWW. pt completed sit to supine max A x 1-2 and max cues. Gait Assessment Gait Gait Assistance Required: Moderate Assistance Maximum Assistance Distance (Feet) 3 Able to Maintain Weight Bearing Status Yes During Gait Assistive Devices Assistive Device Gait Belt Front Wheeled Walker Gait Deviations General Gait Pattern Antalgic Decreased Stride Length Decreased Feet Clearance Factors Limiting Gait Function Factors Limiting Gait Function Decreased Activity Tolerance Decreased Strength Limited Range of Motion Pain Poor Balance Poor Safety Awareness Comments Gait Comments pt was able to take side steps towards HOB mod to max A and max cues. PT-Balance Assessment Sitting Balance and Reactions Static Sitting Balance Ability Good Dynamic Sitting Balance Ability Fair Standing Balance and Reactions Static Standing Balance Ability Poor Dynamic Standing Balance Ability Poor Device Used FWW M5 PT-IP Objective Assessments Start: 01/02/19 13:44 Freq: NEEDED Status: Active Protocol: Document 01/03/19 15:30 AB (Rec: 01/03/19 16:58 AB [id number]) Orientation Orientation/Cognition Level of Alertness Alert Orientation Name Place Situation Safety Awareness Decreased Safety Awareness Memory Description Short Term Impaired Gross Range of Motion Lower Extremity ROM Assessment Right Impaired Strength Lower Extremity Strength Assessment Right Impaired Knee 3+/5 Sensation Assessment Sensation Gross Sensation WNL Muscle Tone Muscle Tone WNL Yes M6 PT-IP Treatment Start: 01/02/19 13:44 Freq: NEEDED Status: Active Protocol: Document 01/03/19 15:30 AB (Rec: 01/03/19 16:58 AB [id number]) Physical Therapy Treatment Education Education Provided Precautions Weight Bearing Status Post-Op Packet Safety M7 PT-IP Assessment and Plan Start: 01/02/19 13:44 Freq: NEEDED Status: Active Protocol: Document 01/03/19 15:30 AB (Rec: 01/03/19 16:58 AB [id number]) PT Summary Assessment and Plan Potential Rehabilitation Potential Fair Status of Condition at Evaluation Evolving Summary Impairments Pain ROM Strength Balance Coordination Sensation Tone Cognition Bed Mobility Transfers Gait Activity Tolerance Assessment Summary pt requiring max A wit mobility and will require SNF rehab to improve strength and mobility prior to d/c home. Goals Bed Mobility Goal Contact Guard Assistance Transfer Goal Contact Guard Assistance Front Wheeled Walker Gait Goal Contact Guard Assistance Front Wheel Walker Gait Distance 100 Other Goals up/down 3 steps L rail ascending CGA Days to Meet Goals 5 Frequency of Treatment Frequency Of Treatment Twice a Day Treatment Plan Physical Therapy Treatment Plan Bed Mobility Training Transfer Training Gait Training Therapeutic Exercise Balance Retraining Post Op Education Discharge Planning Hot or Cold Pack Neuromuscular Re-ed Coordination Retraining Manual Therapy Recommendations To Nursing Amount of Assist Needed 2 Person Assist Discharge Recommendations PT Discharge Recommendations SNF Rehab
--- NOTE | 2019-01-03 15:30 | PT.IIE ---
Current Diagnoses Other secondary scoliosis, lumbar region (01/01/19) Spondylolisthesis, lumbar region (01/01/19) Spinal stenosis, lumbar region with neurogenic claudication (01/01/19) Surgery Performed Operation Date: 01/01/19 07:45 Actual Procedures p L1-2,L2-3 Anterior Instru. fusion, L4-5,L5-S1 Posterior Instru. fusion, L3-4 Lamincetomy - Osmar Craven MD Operation Date: 01/03/19 07:45 Actual Procedures p T12-S1 Posterior Instru. fusion w/bone graft - Osmar Craven MD Surgical History (Last Updated 12/18/18 @ 10:50 by Rebekah Damon RN) History of arthroplasty of left knee (Acute ~2007) History of esophagogastroduodenoscopy (EGD) (Acute) Hx of parotidectomy (Acute) Hx of repair of right rotator cuff (Acute ~2009) Hx of tonsillectomy (Acute) S/P cervical spinal fusion (Acute 06/08/17) S/P right unicompartmental knee replacement (Acute ~2009) Status post cataract extraction of both eyes with insertion of intraocular lens (Acute) Medical History (Last Updated 12/18/18 @ 10:50 by Rebekah Damon RN) Ankle fracture, right (Acute) 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) Former smoker (Acute) GERD (gastroesophageal reflux disease) (Acute) Gait disturbance (Acute) Kidney stones (Acute) Nasal fracture (Acute ~2006) SCC (squamous cell carcinoma) (Acute) Status post gamma knife treatment (Acute) Physical Therapy Inpatient Evaluation/Re-Eval M1 PT/OT-IP Prior Functional Status Start: 01/02/19 13:05 Freq: NEEDED Status: Active Protocol: Document 01/02/19 12:00 (Rec: 01/02/19 15:01 [id number]) Medical Review Prior Functional Status Medical History Reviewed Yes Diet/Fluid Consistency Regular Communication No deficits noted Mobility and Gait Pt was an independent ambulator at home and community without AD. pt states she started using 4WW since this Nov due to increased in back pain. Pt was able to drive as well. Activities of Daily Living and IADL's Pt lives alone and independent for ADLs and IADLs without using AD until this Nov due to increased back pain. Pt used a 4ww to amb within home. Social History Household Members none Living Arrangements House Number of Floors (Floors) Two Floors Number of Stairs To Enter/Railing? 3 NEL with L railing and 15 steps inside of the house with L railing Home Environment Standard Height Toilet Walk in Shower Tub/Shower Home Equipment Raised Toilet Seat Without Armrests Employment Status Retired Additional Social History Comment Pt lives alone in a 2 level home with 3 NEL with L railing in [facility]. Pt's in 2016. Pt currently has her best friend from college to be her primary CG as needed . Pt primarily stays on main floor but she needs to use walk in shower from upstair since she does not like her jettub in the bathroom on the main floor. Pt was indepndent for all ADLs and IADLs, but she started to use 4ww at home since Nov due to increased back pain. PMH includes grade II brain tumor (meningioma) in 2001 and pt states it has been growing at her L frontal lobe and required to do check up every 6 months. Pt also stated she had L sided weakness for years due to her brain tumor Pt expects to d/c to [facility] SNF for short term rehab prior to d/c home M1 PT/OT-IP Prior Functional Status Start: 01/02/19 13:44 Freq: NEEDED Status: Active Protocol: Document 01/03/19 15:30 AB (Rec: 01/03/19 16:58 AB [id number]) Medical Review Prior Functional Status Medical History Reviewed Yes Diet/Fluid Consistency Regular Communication able to make needs known. Mobility and Gait pt stated that she is independent with all mobilities and ambulation without AD but has used a FWW for the last month due to LBP. Social History Household Members none Living Arrangements House Number of Floors (Floors) Two Floors Number of Stairs To Enter/Railing? 3 NEL with L railing and 15 steps inside of the house with L railing Home Environment Standard Height Toilet Walk in Shower Home Equipment Front Wheel Walker Raised Toilet Seat Without Armrests Shower Seat without Backrest Hand Held Shower Employment Status Retired M2 PT-IP Current Condition Start: 01/02/19 13:44 Freq: NEEDED Status: Active Protocol: Document 01/03/19 15:30 AB (Rec: 01/03/19 16:58 AB [id number]) Physical Therapy Current Condition Current Condition Evaluation Date 01/03/19 Treatment Diagnosis s/p T12-L4 post fusion/ instrumentation; difficulty in walking Onset Date 01/01/19 Precautions Lumbar Precautions Log Roll No Twisting Limit Bending Lifting Restriction of 10 lbs Gait Belt above Incisional Area Other Precautions Falls M3 PT-IP Subjective Start: 01/02/19 13:44 Freq: NEEDED Status: Active Protocol: Document 01/03/19 15:30 AB (Rec: 01/03/19 16:58 AB [id number]) Subjective Physical Therapy Visit Type Type Initial Evaluation Visit Start Time 15:30 Visit Stop Time 16:15 Total Visit Minutes 45 Notes pt underwent Part 2 of back surgery today (T12 to L4 posterior fusion / instrumentation). pt underwent Part 1 of back surgery 01/01/19 ( L1-4 anterior fusion, L4-S1 TLIF). PT eval ordered 01/01/19 and MD completed/cancelled previous PT order and received new PT eval order s/p part 2 back surgery. Physical Therapy Visit Comments Patient Comments pt agreeable to do PT Therapy Pain Assessment Pain When Pain Assessed At Rest Pain Present Pain Present Pain Reported Location back Intensity 3 Scale Used Numeric (1 - 10) Pain Management Techniques Re-positioning Timing of Activity with Medications M4 PT-IP Mobility and Gait Start: 01/02/19 13:44 Freq: NEEDED Status: Active Protocol: Document 01/03/19 15:30 AB (Rec: 01/03/19 16:58 AB [id number]) PT-Bed Mobility Assessment Rolling Type of Rolling Log Rolling Level of Assist Maximal Assistance 1 Person Assistance Supine to Sit Supine to Sit Maximum Assistance 1 Person Assistance Bedrails Sit to Supine Sit to Supine Maximum Assistance 1 Person Assistance 2 Person Assistance Bedrails Scooting Scooting to Edge of Bed Maximum Assistance Scooting Up and Down in Bed Maximum Assistance PT-Transfer Assessment Sit to and From Stand Sit to and from Stand Moderate Assistance Maximum Assistance 1 Person Assistance Comments Mobility Comments pt completed bed mobility supine to sit max A and max cues for log roll technique. pt was able to sit on EOB min A and cues. assisted with scooting towards EOB max A and cues. pt stated that she is really tired and wants to lay back in bed. pt agreed to stand to position in bed. completed sit to stand mod to max A and max cues. pt was able to take side steps towards HOB mod to max A and max cues using FWW. pt completed sit to supine max A x 1-2 and max cues. Gait Assessment Gait Gait Assistance Required: Moderate Assistance Maximum Assistance Distance (Feet) 3 Able to Maintain Weight Bearing Status Yes During Gait Assistive Devices Assistive Device Gait Belt Front Wheeled Walker Gait Deviations General Gait Pattern Antalgic Decreased Stride Length Decreased Feet Clearance Factors Limiting Gait Function Factors Limiting Gait Function Decreased Activity Tolerance Decreased Strength Limited Range of Motion Pain Poor Balance Poor Safety Awareness Comments Gait Comments pt was able to take side steps towards HOB mod to max A and max cues. PT-Balance Assessment Sitting Balance and Reactions Static Sitting Balance Ability Good Dynamic Sitting Balance Ability Fair Standing Balance and Reactions Static Standing Balance Ability Poor Dynamic Standing Balance Ability Poor Device Used FWW M5 PT-IP Objective Assessments Start: 01/02/19 13:44 Freq: NEEDED Status: Active Protocol: Document 01/03/19 15:30 AB (Rec: 01/03/19 16:58 AB [id number]) Orientation Orientation/Cognition Level of Alertness Alert Orientation Name Place Situation Safety Awareness Decreased Safety Awareness Memory Description Short Term Impaired Gross Range of Motion Lower Extremity ROM Assessment Right Impaired Impairments decrease R ankle DF Strength Lower Extremity Strength Assessment Right Impaired Knee 3+/5 Ankle 3-/5 Sensation Assessment Sensation Gross Sensation WNL Muscle Tone Muscle Tone WNL Yes M6 PT-IP Treatment Start: 01/02/19 13:44 Freq: NEEDED Status: Active Protocol: Document 01/03/19 15:30 AB (Rec: 01/03/19 16:58 AB [id number]) Physical Therapy Treatment Education Education Provided Precautions Weight Bearing Status Post-Op Packet Safety M7 PT-IP Assessment and Plan Start: 01/02/19 13:44 Freq: NEEDED Status: Active Protocol: Document 01/03/19 15:30 AB (Rec: 01/03/19 16:58 AB [id number]) PT Summary Assessment and Plan Potential Rehabilitation Potential Fair Status of Condition at Evaluation Evolving Summary Impairments Pain ROM Strength Balance Coordination Sensation Tone Cognition Bed Mobility Transfers Gait Activity Tolerance Assessment Summary pt requiring max A wit mobility and will require SNF rehab to improve strength and mobility prior to d/c home. Goals Bed Mobility Goal Contact Guard Assistance Transfer Goal Contact Guard Assistance Front Wheeled Walker Gait Goal Contact Guard Assistance Front Wheel Walker Gait Distance 100 Other Goals up/down 3 steps L rail ascending CGA Days to Meet Goals 5 Frequency of Treatment Frequency Of Treatment Twice a Day Treatment Plan Physical Therapy Treatment Plan Bed Mobility Training Transfer Training Gait Training Therapeutic Exercise Balance Retraining Post Op Education Discharge Planning Hot or Cold Pack Neuromuscular Re-ed Coordination Retraining Manual Therapy Recommendations To Nursing Amount of Assist Needed 2 Person Assist Discharge Recommendations PT Discharge Recommendations SNF Rehab
[2019-01-03] MEDS: CELECOXIB 200 MG CAPSULE 400 MG PO (15:38)
[2019-01-03] MEDS: LACTATED RINGERS 1,000 ML 125 ML IV (15:38)
--- NOTE | 2019-01-03 16:10 | OT.IP.TRT ---
Current Diagnoses Other secondary scoliosis, lumbar region (01/01/19) Spondylolisthesis, lumbar region (01/01/19) Spinal stenosis, lumbar region with neurogenic claudication (01/01/19) Surgery Performed Operation Date: 01/01/19 07:45 Actual Procedures p L1-2,L2-3 Anterior Instru. fusion, L4-5,L5-S1 Posterior Instru. fusion, L3-4 Lamincetomy - Osmar Craven MD Operation Date: 01/03/19 07:45 Actual Procedures p T12-S1 Posterior Instru. fusion w/bone graft - Osmar Craven MD Occupational Therapy Treatment Note M3 OT- IP Subjective and Pain Start: 01/02/19 13:05 Freq: Status: Active Protocol: Document 01/03/19 16:10 [email or web address] (Rec: 01/03/19 16:11 [email or web address] [id number]) OT- Subjective Occupational Therapy Visit Type Type Administrative Note Visit Start Time 16:10 Notes OT reorders received after stage 2 of anterior/posterior lumbar surgery today. Will initiate OT evaluation in AM. No charge.
[2019-01-03] MEDS: GABAPENTIN 400 MG CAPSULE PO ×2 (17:09→20:44)
[2019-01-03] MEDS: DOCUSATE 100 MG CAPSULE PO (20:44)
[2019-01-03] MEDS: SENNOSIDES 8.6 MG TABLET 17.2 MG PO (20:44)
[2019-01-03] MEDS: ACETAMINOPHEN 325 MG TABLET 650 MG PO (20:44)
[2019-01-03] MEDS: OXYCODONE IR 5 MG TABLET 10 MG PO (22:13)
[2019-01-04] MEDS: CEFAZOLIN 2 GM/100 ML FROZ.PIGGY IV (03:31)
[2019-01-04] MEDS: OXYCODONE IR 5 MG TABLET PO ×2 (03:37→03:52)
[2019-01-04] MEDS: ACETAMINOPHEN 325 MG TABLET 650 MG PO (03:52)
[2019-01-04] MEDS: diphenhydrAMINE 25 MG TABLET PO (03:53)
[2019-01-04 03:59] VITALS: BP 151/83; RESP 16; O2SAT 95
[2019-01-04] MEDS: LACTATED RINGERS 1,000 ML 125 ML IV (05:21)
[2019-01-04 06:32] LABS: Hemoglobin 7.9 g/dL (12.0-16.0)
[2019-01-04 06:43] LABS: Hematocrit 24.1 % (36-46)
[2019-01-04 08:00] VITALS: BP 149/81; PULSE 97; RESP 14; TEMP 36.7; O2SAT 92
--- NOTE | 2019-01-04 08:01 | PM.PNPO.1 ---
Subjective Date Patient Seen: 01/04/19 Time Patient Seen: 08:01 Interval history: Pain level is 6/10. Hurts the most on the left lower back to the buttock. Denies shortness of breath, chest pain, lightheadedness. Exam Vital Signs (past 8 hours): - 01/04/19 03:59 Respiratory Rate 16 Blood Pressure 151/83 H Pulse Oximetry 95 Oxygen Delivery Method Room Air Oxygen Flow Rate 2 Const Orientation: alert and oriented x3 Back/Spine/Pelvis Other: Minimal dry drainage. 5/5 motor both lower extremities. Drain output 23/08/10 Objective Labs Result Diagrams: 01/04/19 06:18 Labs: Laboratory Results - last 24 hr 01/04/19 06:18 Hgb 7.9 L Hct 24.1 L Assessment & Plan Post-op Postoperative Procedures Operation Date: 01/01/19 07:45 Actual Procedures Side Surgeon p L1-2,L2-3 Anterior Instru. fusion, L4-5,L5-S1 Posterior Instru. fusion, L3-4 Lamincetomy Osmar Craven MD Operation Date: 01/03/19 07:45 Actual Procedures Side Surgeon p T12-S1 Posterior Instru. fusion w/bone graft Osmar Craven MD Stable status post her 2 stage anterior-posterior reconstruction and laminectomies. Mobilize today with physical therapy Acute blood loss anemia. She is asymptomatic at this point with stable vital signs. If she becomes symptomatic consider transfusion but for now just watch. Anticipate 2-3 more days in the hospital prior to discharge to detention. Quality VTE Deep Vein Thrombosis/Pulmonary Embolism Present on Admission: No
[2019-01-04] MEDS: OXYCODONE IR 5 MG TABLET 10 MG PO ×4 (09:48→19:47)
[2019-01-04] MEDS: DOCUSATE 100 MG CAPSULE PO ×2 (09:48→21:46)
[2019-01-04] MEDS: GABAPENTIN 400 MG CAPSULE PO ×3 (09:48→21:46)
[2019-01-04] MEDS: CELECOXIB 200 MG CAPSULE PO ×2 (09:49→21:46)
--- NOTE | 2019-01-04 10:40 | PT.IPTN ---
Current Diagnoses Other secondary scoliosis, lumbar region (01/01/19) Spondylolisthesis, lumbar region (01/01/19) Spinal stenosis, lumbar region with neurogenic claudication (01/01/19) Surgery Performed Operation Date: 01/01/19 07:45 Actual Procedures p L1-2,L2-3 Anterior Instru. fusion, L4-5,L5-S1 Posterior Instru. fusion, L3-4 Lamincetomy - Osmar Craven MD Operation Date: 01/03/19 07:45 Actual Procedures p T12-S1 Posterior Instru. fusion w/bone graft - Osmar Craven MD Physical Therapy Treatment Note M2 PT-IP Current Condition Start: 01/02/19 13:44 Freq: NEEDED Status: Active Protocol: Document 01/03/19 15:30 AB (Rec: 01/03/19 16:58 AB [id number]) Physical Therapy Current Condition Current Condition Evaluation Date 01/03/19 Treatment Diagnosis s/p T12-L4 post fusion/ instrumentation; difficulty in walking Onset Date 01/01/19 Precautions Lumbar Precautions Log Roll No Twisting Limit Bending Lifting Restriction of 10 lbs Gait Belt above Incisional Area Other Precautions Falls M3 PT-IP Subjective Start: 01/02/19 13:44 Freq: NEEDED Status: Active Protocol: Document 01/04/19 11:10 GGD (Rec: 01/04/19 11:38 GGD [id number]) Subjective Physical Therapy Visit Type Type Treatment Note Visit Start Time 10:55 Visit Stop Time 11:10 Total Visit Minutes 15 Number of LIEUTENANT BALLISTICS Visits 1 Therapy Pain Assessment Pain When Pain Assessed At Rest Pain Present Pain Present Pain Reported Location back Intensity 7 Scale Used Numeric (1 - 10) M4 PT-IP Mobility and Gait Start: 01/02/19 13:44 Freq: NEEDED Status: Active Protocol: Document 01/04/19 11:10 GGD (Rec: 01/04/19 11:38 GGD [id number]) PT-Bed Mobility Assessment Rolling Type of Rolling Log Rolling Level of Assist Moderate Assistance 1 Person Assistance Supine to Sit Supine to Sit Moderate Assistance 1 Person Assistance Bedrails Scooting Scooting to Edge of Bed Moderate Assistance PT-Transfer Assessment Sit to and From Stand Sit to and from Stand Minimal Assistance 1 Person Assistance Use of Upper Extremities Equipment Transfer Assistive Device Gait Belt Front Wheeled Walker Orthotic/Prosthetic Devices or Brace: No Transfers Transfer Destination Chair Transfer Technique Stand Step Pivot Transfer Ability Level of Assist Minimal Assistance 1 Person Assistance Use of Upper Extremities Gait Assessment Gait Gait Assistance Required: Contact Guard Assist 1 Person Assist Distance (Feet) 3 Assistive Devices Assistive Device Gait Belt Front Wheeled Walker Gait Deviations General Gait Pattern Antalgic Decreased Stride Length Decreased Feet Clearance Factors Limiting Gait Function Factors Limiting Gait Function Decreased Activity Tolerance Decreased Strength Limited Range of Motion Pain Poor Balance Poor Safety Awareness Comments Gait Comments Pt small steps forward to chair. M5 PT-IP Objective Assessments Start: 01/02/19 13:44 Freq: NEEDED Status: Active Protocol: Document 01/03/19 15:30 AB (Rec: 01/03/19 16:58 AB [id number]) Orientation Orientation/Cognition Level of Alertness Alert Orientation Name Place Situation Safety Awareness Decreased Safety Awareness Memory Description Short Term Impaired Gross Range of Motion Lower Extremity ROM Assessment Right Impaired Impairments decrease R ankle DF Strength Lower Extremity Strength Assessment Right Impaired Knee 3+/5 Ankle 3-/5 Sensation Assessment Sensation Gross Sensation WNL Muscle Tone Muscle Tone WNL Yes M6 PT-IP Treatment Start: 01/02/19 13:44 Freq: NEEDED Status: Active Protocol: Document 01/03/19 15:30 AB (Rec: 01/03/19 16:58 AB [id number]) Physical Therapy Treatment Education Education Provided Precautions Weight Bearing Status Post-Op Packet Safety M7 PT-IP Assessment and Plan Start: 01/02/19 13:44 Freq: NEEDED Status: Active Protocol: Document 01/04/19 11:10 GGD (Rec: 01/04/19 11:38 GGD [id number]) PT Summary Assessment and Plan Summary Assessment Summary Pt is improving slowly. She was able to take small steps for transfer, but had LE weakness. She need mod A for bed mobility. She would benefit from SNF rehab. Frequency of Treatment Frequency Of Treatment Twice a Day Treatment Plan Physical Therapy Treatment Plan Bed Mobility Training Transfer Training Gait Training Therapeutic Exercise Balance Retraining Post Op Education Discharge Planning Hot or Cold Pack Neuromuscular Re-ed Coordination Retraining Manual Therapy Recommendations To Nursing Amount of Assist Needed 2 Person Assist Discharge Recommendations PT Discharge Recommendations SNF Rehab
[2019-01-04 12:15] VITALS: BP 186/90; PULSE 91; RESP 16; TEMP 36.4; O2SAT 93
--- NOTE | 2019-01-04 12:50 | OT.IP.EVAL ---
Current Diagnoses Other secondary scoliosis, lumbar region (01/01/19) Spondylolisthesis, lumbar region (01/01/19) Spinal stenosis, lumbar region with neurogenic claudication (01/01/19) Surgery Performed Operation Date: 01/01/19 07:45 Actual Procedures p L1-2,L2-3 Anterior Instru. fusion, L4-5,L5-S1 Posterior Instru. fusion, L3-4 Lamincetomy - Osmar Craven MD Operation Date: 01/03/19 07:45 Actual Procedures p T12-S1 Posterior Instru. 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) Former smoker (Acute) GERD (gastroesophageal reflux disease) (Acute) Gait disturbance (Acute) Kidney stones (Acute) Nasal fracture (Acute ~2006) SCC (squamous cell carcinoma) (Acute) Status post gamma knife treatment (Acute) Surgical History (Last Updated 12/18/18 @ 10:50 by Rebekah Damon, RN) History of arthroplasty of left knee (Acute ~2007) History of esophagogastroduodenoscopy (EGD) (Acute) Hx of parotidectomy (Acute) Hx of repair of right rotator cuff (Acute ~2009) Hx of tonsillectomy (Acute) S/P cervical spinal fusion (Acute 06/08/17) S/P right unicompartmental knee replacement (Acute ~2009) Status post cataract extraction of both eyes with insertion of intraocular lens (Acute) Occupational Therapy Inpatient Evaluation/Re-Eval M1 PT/OT-IP Prior Functional Status Start: 01/02/19 13:44 Freq: NEEDED Status: Active Protocol: Document 01/04/19 12:27 [facility] (Rec: 01/04/19 12:49 [facility] [id number]) Medical Review Prior Functional Status Medical History Reviewed Yes Diet/Fluid Consistency Regular Communication able to make needs known. Mobility and Gait pt stated that she is independent with all mobilities and ambulation without AD but has used a FWW for the last month due to low back pain. Pt also has a transport wheelchair at home that she states to use to transport items from place to place. Activities of Daily Living and IADL's Prior pt states able to do all ADL's and IADL needs with increased time. Pt uses AFO prior due to weakness with left side from brain tumor. Social History Household Members none Living Arrangements House Number of Floors (Floors) Two Floors Number of Stairs To Enter/Railing? 3 NEL with L railing and 15 steps inside of the house with L railing Home Environment Standard Height Toilet Walk in Shower Home Equipment Front Wheel Walker Raised Toilet Seat Without Armrests Shower Seat without Backrest Hand Held Shower Employment Status Retired Additional Social History Comment Pt lives alone in a 2 level home with 3 NEL with L railing in [facility]. Pt's in 2016. Pt currently has her best friend from college to be her primary CG as needed . Pt primarily stays on main floor but she needs to use walk in shower from upstair since she does not like her jettub in the bathroom on the main floor. Pt was indepndent for all ADLs and IADLs, but she started to use 4ww at home since Nov due to increased back pain. PMH includes grade II brain tumor (meningioma) in 2001 and pt states it has been growing at her L frontal lobe and required to do check up every 6 months. Pt also stated she had L sided weakness for years due to her brain tumor Pt expects to d/c to [facility] for short term rehab prior to d/c home M2 OT-IP Current Condition Start: 01/02/19 13:05 Freq: Status: Active Protocol: Document 01/04/19 12:27 [facility] (Rec: 01/04/19 12:49 [facility] [id number]) Occupational Therapy Current Condition Current Condition Evaluation Date 01/04/19 Treatment Diagnosis Lumbar stenosis Diagnosis Onset Date 01/01/19 Post Operative Precautions Lumbar Precautions Log Roll No Twisting Limit Bending Lifting Restriction of 10 lbs Gait Belt above Incisional Area M3 OT- IP Subjective and Pain Start: 01/02/19 13:05 Freq: Status: Active Protocol: Document 01/04/19 12:27 [facility] (Rec: 01/04/19 12:49 [facility] [id number]) OT- Subjective Occupational Therapy Visit Type Type Initial Evaluation Visit Start Time 10:27 Visit Stop Time 11:07 Total Visit Minutes 40 Occupational Therapy Visit Comments Patient Comments Pt agreeable to get up with 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 OT Pain Assessment Pain When Pain Assessed During Mobility Pain Present Pain Present Pain Reported Location back Intensity 8 Scale Used Numeric (1 - 10) M4 OT- IP ADL's Start: 01/02/19 13:05 Freq: Status: Active Protocol: Document 01/04/19 12:27 [facility] (Rec: 01/04/19 12:49 [facility] [id number]) OT ADL-Dressing General Eval Lower Body Dressing Ability Maximum Assistance Areas Needing Assistance Socks Comments OT Dressing Comments Pt states has AFO in car and suggested friend to bring AFO up so able to use in therapy. Pt states mainly uses it for outdoor walking. M5 OT- IP IADL's Start: 01/02/19 13:05 Freq: Status: Active Protocol: Document 01/04/19 12:27 [facility] (Rec: 01/04/19 12:49 [facility] [id number]) OT-Instrumental Activities of Daily Living Project/Production Manager Imaging Project/Production Manager Imaging Comments Pt states knows after going home will need assist for IADl needs. M6 OT- IP Functional Cognition Start: 01/02/19 13:05 Freq: Status: Active Protocol: Document 01/04/19 12:27 [facility] (Rec: 01/04/19 12:49 [facility] [id number]) Cognitive Factors Limiting Selfcare Function Cognitive Ability Level of Alertness Alert Confusional State Patient Orientation Name Age Situation Attention Span Ability Capable of Focused Attention Capable of Sustained Attention Ability to Follow Commands Able to Follow One Step Commands Memory Description Short Term Impaired Safety Awareness Decreased Recall of Precautions Decreased Ability to Apply Precautions Underestimates Need for Assistance Problem Solving Ability Needs Assist to Identify Solutions Cognitive Comments Cognitive Assessment Comments Pt a bit groggy as not able to recall all back precautions or details of home set-up and friend having to clarify answers at times. Pt needing step by step instructions for AED training for LB dressing needs and transfer. OT- Vision and Hearing OT- Hearing Assessment OT- Hearing Assessment WFL OT- Vision Assessment Vision Assessment Comments Pt does not have her glasses and encourages friend to bring them up from the car. M7 OT- IP Mobility and Balance Start: 01/02/19 13:05 Freq: Status: Active Protocol: Document 01/04/19 12:27 [facility] (Rec: 01/04/19 12:49 [facility] [id number]) OT- Bed Mobility Assessment Rolling Type of Rolling Roll to Right Level of Assistance Moderate Assistance 1 Person Assistance Supine to Sit Supine to Sit Assist Moderate Assistance 1 Person Assistance OT-Transfer Assessment Sit to and From Stand Sit to and from Stand Minimal Assistance 1 Person Assistance Transfers Transfer Ability Minimal Assistance 1 Person Assistance Technique Transfer Destination Chair Transfer Technique Stand Step Pivot Devices Transfer Assistive Devices Gait Belt Front Wheeled Walker Comments Mobility Comments MODA for bed mobility and MAHESH once upright a bit unsteady on her feet, another person for safety . Pt able to transfer to recliner. Encouraged pt to have AFO next time. OT- Balance Assessment Sitting Balance and Reactions Static Sitting Balance Ability Good Standing Balance and Reactions Static Standing Balance Ability Fair M8 OT- IP Objective Assessments Start: 01/02/19 13:05 Freq: Status: Active Protocol: Document 01/04/19 12:27 [facility] (Rec: 01/04/19 12:49 [facility] [id number]) OT Gross Range of Motion Upper Extremity Range of Motion Assessment Right Impaired ROM Impairments Right ARm rotator cuff tear per pt and only able to raise arm to 70 degrees shoulde flexion. OT Strength Comments Strength Comments Decreased due to arthritis. OT- Coordination Assessment Comments Coordination Comments Arthritic changes in hands. Increased time to catalina socks onto sock aid. M9 OT- IP Assessment and Plan Start: 01/02/19 13:05 Freq: Status: Active Protocol: Document 01/04/19 12:27 [facility] (Rec: 01/04/19 12:49 [facility] [id number]) OT Summary Assessment and Plan Potential Rehabilitation Potential Good Analytic Complexity at Evaluation Low Summary OT Impairments Pain Strength Balance Coordination Functional Cognition Functional Mobility Grooming Dressing Toileting Bathing Toilet Transfers Shower Transfers Progress Towards Goals Slow Progress due to Activity Tolerance Slow Progress due to Cognition Assessment Summary Pt low complexity and main barriers are steps, activity tolerance, strength, and now needing extensive assist for ADl's . Pt far from baseline, and would benefit from skilled rehab prior to going home. Goals Grooming Goal Standby Assistance Dressing Goal Moderate Assistance Toileting Goal Minimal Assistance Bathing Goal Minimal Assistance Toilet Transfer Goal Standard Toilet Shower Transfer Goal Minimal Assistance Patient/Caregiver Education Goal Demonstrate Post-Op Precautions Days to Meet Goals 5 Frequency of Treatment Frequency Of Treatment Once a Day Treatment Plan OT Treatment Plan ADL Training Functional Cognition Training Functional Mobility Patient/Family Education Discharge Planning Other Treatment Recommendations and Next Stand at sink. Treatment Focus Discharge Recommendations OT Discharge Recommendations SNF Rehab Home Equipment Needs BSC, sock aid
--- NOTE | 2019-01-04 13:55 | PT.IPTN ---
Current Diagnoses Other secondary scoliosis, lumbar region (01/01/19) Spondylolisthesis, lumbar region (01/01/19) Spinal stenosis, lumbar region with neurogenic claudication (01/01/19) Surgery Performed Operation Date: 01/01/19 07:45 Actual Procedures p L1-2,L2-3 Anterior Instru. fusion, L4-5,L5-S1 Posterior Instru. fusion, L3-4 Lamincetomy - Osmar Craven MD Operation Date: 01/03/19 07:45 Actual Procedures p T12-S1 Posterior Instru. fusion w/bone graft - Osmar Craven MD Physical Therapy Treatment Note M2 PT-IP Current Condition Start: 01/02/19 13:44 Freq: NEEDED Status: Active Protocol: Document 01/03/19 15:30 AB (Rec: 01/03/19 16:58 AB [id number]) Physical Therapy Current Condition Current Condition Evaluation Date 01/03/19 Treatment Diagnosis s/p T12-L4 post fusion/ instrumentation; difficulty in walking Onset Date 01/01/19 Precautions Lumbar Precautions Log Roll No Twisting Limit Bending Lifting Restriction of 10 lbs Gait Belt above Incisional Area Other Precautions Falls M3 PT-IP Subjective Start: 01/02/19 13:44 Freq: NEEDED Status: Active Protocol: Document 01/04/19 14:00 GGD (Rec: 01/04/19 14:52 GGD [id number]) Subjective Physical Therapy Visit Type Type Treatment Note Visit Start Time 13:30 Visit Stop Time 13:55 Total Visit Minutes 25 Number of WARP HANGER Visits 2 Physical Therapy Visit Comments Patient Comments Pt states she would like to go back to bed. M4 PT-IP Mobility and Gait Start: 01/02/19 13:44 Freq: NEEDED Status: Active Protocol: Document 01/04/19 14:00 GGD (Rec: 01/04/19 14:52 GGD [id number]) PT-Bed Mobility Assessment Rolling Type of Rolling Log Rolling Level of Assist Moderate Assistance 1 Person Assistance Sit to Supine Sit to Supine Moderate Assistance 1 Person Assistance Bedrails Scooting Scooting to Edge of Bed Moderate Assistance PT-Transfer Assessment Sit to and From Stand Sit to and from Stand Minimal Assistance 1 Person Assistance Use of Upper Extremities Equipment Transfer Assistive Device Gait Belt Front Wheeled Walker Orthotic/Prosthetic Devices or Brace: No Transfers Transfer Destination Bed Transfer Technique Stand Step Pivot Transfer Ability Level of Assist Minimal Assistance 1 Person Assistance Use of Upper Extremities Gait Assessment Gait Gait Assistance Required: Contact Guard Assist 1 Person Assist Distance (Feet) 4 Assistive Devices Assistive Device Gait Belt Front Wheeled Walker Gait Deviations General Gait Pattern Antalgic Decreased Stride Length Decreased Feet Clearance Factors Limiting Gait Function Factors Limiting Gait Function Decreased Activity Tolerance Decreased Strength Limited Range of Motion Pain Poor Balance Poor Safety Awareness Comments Gait Comments Pt small side steps to HOB. M5 PT-IP Objective Assessments Start: 01/02/19 13:44 Freq: NEEDED Status: Active Protocol: Document 01/03/19 15:30 AB (Rec: 01/03/19 16:58 AB [id number]) Orientation Orientation/Cognition Level of Alertness Alert Orientation Name Place Situation Safety Awareness Decreased Safety Awareness Memory Description Short Term Impaired Gross Range of Motion Lower Extremity ROM Assessment Right Impaired Impairments decrease R ankle DF Strength Lower Extremity Strength Assessment Right Impaired Knee 3+/5 Ankle 3-/5 Sensation Assessment Sensation Gross Sensation WNL Muscle Tone Muscle Tone WNL Yes M6 PT-IP Treatment Start: 01/02/19 13:44 Freq: NEEDED Status: Active Protocol: Document 01/03/19 15:30 AB (Rec: 01/03/19 16:58 AB [id number]) Physical Therapy Treatment Education Education Provided Precautions Weight Bearing Status Post-Op Packet Safety M7 PT-IP Assessment and Plan Start: 01/02/19 13:44 Freq: NEEDED Status: Active Protocol: Document 01/04/19 14:00 GGD (Rec: 01/04/19 14:52 GGD [id number]) PT Summary Assessment and Plan Summary Assessment Summary Pt is progressing slowly. She was able to take small steps for transfer, but not able to take steps for functional gait . She needs assist with bed mobility. She would benefit from SNF. Frequency of Treatment Frequency Of Treatment Twice a Day Treatment Plan Physical Therapy Treatment Plan Bed Mobility Training Transfer Training Gait Training Therapeutic Exercise Balance Retraining Post Op Education Discharge Planning Hot or Cold Pack Neuromuscular Re-ed Coordination Retraining Manual Therapy Recommendations To Nursing Amount of Assist Needed 2 Person Assist Discharge Recommendations PT Discharge Recommendations SNF Rehab
[2019-01-04 15:45] VITALS: BP 148/74; PULSE 95; RESP 18; TEMP 36.9; O2SAT 92
[2019-01-04] MEDS: ONDANSETRON 4 MG/2 ML INJ IV (18:58)
[2019-01-04 19:49] VITALS: BP 154/86; PULSE 106; RESP 16; TEMP 36.8; O2SAT 94
[2019-01-04] MEDS: SENNOSIDES 8.6 MG TABLET 17.2 MG PO (21:46)
[2019-01-04 23:00] VITALS: BP 147/73; PULSE 108; RESP 16; TEMP 37.8; O2SAT 94
[2019-01-05] MEDS: ACETAMINOPHEN 325 MG TABLET 650 MG PO (00:07)
[2019-01-05] MEDS: MAGNESIUM HYDROXIDE 30 ML UDC PO (00:10)
[2019-01-05 06:19] VITALS: BP 153/94; PULSE 97; RESP 16; TEMP 36.8; O2SAT 94
[2019-01-05 06:51] LABS: Hematocrit 25.3 % (36-46); Hemoglobin 8.5 g/dL (12.0-16.0)
[2019-01-05] MEDS: CELECOXIB 200 MG CAPSULE PO ×2 (08:02→22:44)
[2019-01-05] MEDS: GABAPENTIN 400 MG CAPSULE PO ×4 (08:02→22:44)
[2019-01-05] MEDS: DOCUSATE 100 MG CAPSULE PO ×2 (08:02→22:44)
[2019-01-05] MEDS: OXYCODONE IR 5 MG TABLET 10 MG PO ×5 (08:03→23:54)
--- NOTE | 2019-01-05 08:37 | PM.PNPO.1 ---
Subjective Date Patient Seen: 01/05/19 Time Patient Seen: 08:38 Interval history: She is behind on her pain medication as she did not request any overnight. Pain is about a 7 all lower back. Exam Vital Signs (past 8 hours): - 01/05/19 06:19 Temperature 98.3 F Pulse Rate 97 H Respiratory Rate 16 Blood Pressure 153/94 H Pulse Oximetry 94 Oxygen Delivery Method Room Air Oxygen Flow Rate 0 Const Orientation: alert and oriented x3 Back/Spine/Pelvis Other: Mild drainage. Drain output 10/03/ 5/5 motor both lower extremities Objective Labs Result Diagrams: 01/05/19 06:30 Labs: Laboratory Results - last 24 hr 01/05/19 06:30 Hgb 8.5 L Hct 25.3 L Assessment & Plan Post-op Postoperative Procedures Operation Date: 01/01/19 07:45 Actual Procedures Side Surgeon p L1-2,L2-3 Anterior Instru. fusion, L4-5,L5-S1 Posterior Instru. fusion, L3-4 Lamincetomy Osmar Craven MD Operation Date: 01/03/19 07:45 Actual Procedures Side Surgeon p T12-S1 Posterior Instru. fusion w/bone graft Osmar Craven MD overall she is on course for where she should be. Continue mobilizing with physical therapy. Anticipate discharge to nursing home on Monday. H&H stable and actually improving today, still asymptomatic acute blood loss anemia. Quality VTE Deep Vein Thrombosis/Pulmonary Embolism Present on Admission: No
[2019-01-05 10:00] VITALS: BP 145/76; PULSE 99; RESP 16; TEMP 36.3; O2SAT 93
--- NOTE | 2019-01-05 12:00 | PT.IPTN ---
Current Diagnoses Other secondary scoliosis, lumbar region (01/01/19) Spondylolisthesis, lumbar region (01/01/19) Spinal stenosis, lumbar region with neurogenic claudication (01/01/19) Surgery Performed Operation Date: 01/01/19 07:45 Actual Procedures p L1-2,L2-3 Anterior Instru. fusion, L4-5,L5-S1 Posterior Instru. fusion, L3-4 Lamincetomy - Osmar Craven MD Operation Date: 01/03/19 07:45 Actual Procedures p T12-S1 Posterior Instru. fusion w/bone graft - Osmar Craven MD Physical Therapy Treatment Note M2 PT-IP Current Condition Start: 01/02/19 13:44 Freq: NEEDED Status: Active Protocol: Document 01/03/19 15:30 AB (Rec: 01/03/19 16:58 AB [id number]) Physical Therapy Current Condition Current Condition Evaluation Date 01/03/19 Treatment Diagnosis s/p T12-L4 post fusion/ instrumentation; difficulty in walking Onset Date 01/01/19 Precautions Lumbar Precautions Log Roll No Twisting Limit Bending Lifting Restriction of 10 lbs Gait Belt above Incisional Area Other Precautions Falls M3 PT-IP Subjective Start: 01/02/19 13:44 Freq: NEEDED Status: Active Protocol: Document 01/05/19 12:00 GGD (Rec: 01/05/19 12:33 GGD [id number]) Subjective Physical Therapy Visit Type Type Treatment Note Visit Start Time 11:35 Visit Stop Time 12:00 Total Visit Minutes 25 Number of SITE AUDITOR Visits 3 Physical Therapy Visit Comments Patient Comments Pt willing to work with therapy. Therapy Pain Assessment Pain When Pain Assessed At Rest Pain Present Pain Present Pain Reported Location back Intensity 5 Scale Used Numeric (1 - 10) M4 PT-IP Mobility and Gait Start: 01/02/19 13:44 Freq: NEEDED Status: Active Protocol: Document 01/05/19 12:00 GGD (Rec: 01/05/19 12:33 GGD [id number]) PT-Transfer Assessment Sit to and From Stand Sit to and from Stand Minimal Assistance 1 Person Assistance Use of Upper Extremities Equipment Transfer Assistive Device Gait Belt Front Wheeled Walker Orthotic/Prosthetic Devices or Brace: No Transfers Transfer Destination Chair Transfer Technique Stand Step Pivot Transfer Ability Level of Assist Minimal Assistance 1 Person Assistance Use of Upper Extremities Comments Mobility Comments max a for AFO and shoe donning Gait Assessment Gait Gait Assistance Required: Contact Guard Assist 1 Person Assist Distance (Feet) 40 Assistive Devices Assistive Device Gait Belt Front Wheeled Walker Gait Deviations General Gait Pattern Antalgic Decreased Stride Length Decreased Feet Clearance Factors Limiting Gait Function Factors Limiting Gait Function Decreased Activity Tolerance Decreased Strength Limited Range of Motion Pain Poor Balance Poor Safety Awareness M5 PT-IP Objective Assessments Start: 01/02/19 13:44 Freq: NEEDED Status: Active Protocol: Document 01/03/19 15:30 AB (Rec: 01/03/19 16:58 AB [id number]) Orientation Orientation/Cognition Level of Alertness Alert Orientation Name Place Situation Safety Awareness Decreased Safety Awareness Memory Description Short Term Impaired Gross Range of Motion Lower Extremity ROM Assessment Right Impaired Impairments decrease R ankle DF Strength Lower Extremity Strength Assessment Right Impaired Knee 3+/5 Ankle 3-/5 Sensation Assessment Sensation Gross Sensation WNL Muscle Tone Muscle Tone WNL Yes M6 PT-IP Treatment Start: 01/02/19 13:44 Freq: NEEDED Status: Active Protocol: Document 01/05/19 12:00 GGD (Rec: 01/05/19 12:33 GGD [id number]) Physical Therapy Treatment Education Education Provided Precautions M7 PT-IP Assessment and Plan Start: 01/02/19 13:44 Freq: NEEDED Status: Active Protocol: Document 01/05/19 12:00 GGD (Rec: 01/05/19 12:33 GGD [id number]) PT Summary Assessment and Plan Summary Assessment Summary Pt improving slowly with mobility. She had improved stability with AFO and shoes on. She was able to progress gait distance without LOB. She did need min A for sit to stand. Frequency of Treatment Frequency Of Treatment Twice a Day Treatment Plan Physical Therapy Treatment Plan Bed Mobility Training Transfer Training Gait Training Therapeutic Exercise Balance Retraining Post Op Education Discharge Planning Hot or Cold Pack Neuromuscular Re-ed Coordination Retraining Manual Therapy Recommendations To Nursing Amount of Assist Needed 2 Person Assist Discharge Recommendations PT Discharge Recommendations SNF Rehab
[2019-01-05 14:03] VITALS: BP 150/78; PULSE 90; RESP 16; TEMP 36.7; O2SAT 95
--- NOTE | 2019-01-05 14:42 | PT.IPTN ---
Current Diagnoses Other secondary scoliosis, lumbar region (01/01/19) Spondylolisthesis, lumbar region (01/01/19) Spinal stenosis, lumbar region with neurogenic claudication (01/01/19) Surgery Performed Operation Date: 01/01/19 07:45 Actual Procedures p L1-2,L2-3 Anterior Instru. fusion, L4-5,L5-S1 Posterior Instru. fusion, L3-4 Lamincetomy - Osmar Craven MD Operation Date: 01/03/19 07:45 Actual Procedures p T12-S1 Posterior Instru. fusion w/bone graft - Osmar rCaven MD Physical Therapy Treatment Note M2 PT-IP Current Condition Start: 01/02/19 13:44 Freq: NEEDED Status: Active Protocol: Document 01/03/19 15:30 AB (Rec: 01/03/19 16:58 AB [id number]) Physical Therapy Current Condition Current Condition Evaluation Date 01/03/19 Treatment Diagnosis s/p T12-L4 post fusion/ instrumentation; difficulty in walking Onset Date 01/01/19 Precautions Lumbar Precautions Log Roll No Twisting Limit Bending Lifting Restriction of 10 lbs Gait Belt above Incisional Area Other Precautions Falls M3 PT-IP Subjective Start: 01/02/19 13:44 Freq: NEEDED Status: Active Protocol: Document 01/05/19 14:35 GGD (Rec: 01/05/19 14:42 GGD [id number]) Subjective Physical Therapy Visit Type Type Treatment Note Visit Start Time 14:15 Visit Stop Time 14:35 Total Visit Minutes 20 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 Therapy Pain Assessment Pain When Pain Assessed At Rest Pain Present Pain Present Pain Reported Location back Intensity 4 Scale Used Numeric (1 - 10) M4 PT-IP Mobility and Gait Start: 01/02/19 13:44 Freq: NEEDED Status: Active Protocol: Document 01/05/19 14:35 GGD (Rec: 01/05/19 14:42 GGD [id number]) PT-Bed Mobility Assessment Rolling Type of Rolling Log Rolling Level of Assist Moderate Assistance 1 Person Assistance Sit to Supine Sit to Supine Moderate Assistance 1 Person Assistance Bedrails Scooting Scooting to Edge of Bed Minimal Assistance PT-Transfer Assessment Sit to and From Stand Sit to and from Stand Minimal Assistance 1 Person Assistance Use of Upper Extremities Equipment Transfer Assistive Device Gait Belt Front Wheeled Walker Orthotic/Prosthetic Devices or Brace: No Transfers Transfer Destination Bed Transfer Ability Level of Assist Minimal Assistance 1 Person Assistance Use of Upper Extremities Gait Assessment Gait Gait Assistance Required: Contact Guard Assist 1 Person Assist Distance (Feet) 80 Assistive Devices Assistive Device Gait Belt Front Wheeled Walker Gait Deviations General Gait Pattern Antalgic Decreased Stride Length Decreased Feet Clearance Factors Limiting Gait Function Factors Limiting Gait Function Decreased Activity Tolerance Decreased Strength Limited Range of Motion Pain Poor Balance Poor Safety Awareness M5 PT-IP Objective Assessments Start: 01/02/19 13:44 Freq: NEEDED Status: Active Protocol: Document 01/03/19 15:30 AB (Rec: 01/03/19 16:58 AB [id number]) Orientation Orientation/Cognition Level of Alertness Alert Orientation Name Place Situation Safety Awareness Decreased Safety Awareness Memory Description Short Term Impaired Gross Range of Motion Lower Extremity ROM Assessment Right Impaired Impairments decrease R ankle DF Strength Lower Extremity Strength Assessment Right Impaired Knee 3+/5 Ankle 3-/5 Sensation Assessment Sensation Gross Sensation WNL Muscle Tone Muscle Tone WNL Yes M6 PT-IP Treatment Start: 01/02/19 13:44 Freq: NEEDED Status: Active Protocol: Document 01/05/19 14:35 GGD (Rec: 01/05/19 14:42 GGD [id number]) Physical Therapy Treatment Education Education Provided Precautions M7 PT-IP Assessment and Plan Start: 01/02/19 13:44 Freq: NEEDED Status: Active Protocol: Document 01/05/19 14:35 GGD (Rec: 01/05/19 14:42 GGD [id number]) PT Summary Assessment and Plan Summary Assessment Summary Pt is improving slowly. She still needs mod A for bed mobility. She was able to progress gait distance with step to gait pattern and decrease foot clearance. She would benefit from SNF. Frequency of Treatment Frequency Of Treatment Twice a Day Recommendations To Nursing Amount of Assist Needed 2 Person Assist Discharge Recommendations PT Discharge Recommendations SNF Rehab
--- NOTE | 2019-01-05 16:41 | OT.IP.TRT ---
Current Diagnoses Other secondary scoliosis, lumbar region (01/01/19) Spondylolisthesis, lumbar region (01/01/19) Spinal stenosis, lumbar region with neurogenic claudication (01/01/19) Surgery Performed Operation Date: 01/01/19 07:45 Actual Procedures p L1-2,L2-3 Anterior Instru. fusion, L4-5,L5-S1 Posterior Instru. fusion, L3-4 Lamincetomy - Osmar Craven MD Operation Date: 01/03/19 07:45 Actual Procedures p T12-S1 Posterior Instru. fusion w/bone graft - Osmar Craven MD Occupational Therapy Treatment Note M2 OT-IP Current Condition Start: 01/02/19 13:05 Freq: Status: Active Protocol: Document 01/04/19 12:27 [facility] (Rec: 01/04/19 12:49 [facility] [id number]) Occupational Therapy Current Condition Current Condition Evaluation Date 01/04/19 Treatment Diagnosis Lumbar stenosis Diagnosis Onset Date 01/01/19 Post Operative Precautions Lumbar Precautions Log Roll No Twisting Limit Bending Lifting Restriction of 10 lbs Gait Belt above Incisional Area M3 OT- IP Subjective and Pain Start: 01/02/19 13:05 Freq: Status: Active Protocol: Document 01/05/19 16:25 [facility] (Rec: 01/05/19 16:41 [facility] [id number]) OT- Subjective Occupational Therapy Visit Type Type Treatment Note Visit Start Time 15:50 Visit Stop Time 16:15 Total Visit Minutes 25 Occupational Therapy Visit Comments Patient Comments Pt wanting to go to use the BSC. Pt now wanting to put on her AFO at this time. OT Pain Assessment Pain When Pain Assessed At Rest Pain Present Pain Present Pain Reported Location back Intensity 8 Scale Used Numeric (1 - 10) M4 OT- IP ADL's Start: 01/02/19 13:05 Freq: Status: Active Protocol: Document 01/05/19 16:25 [facility] (Rec: 01/05/19 16:41 [facility] [id number]) OT ADL-Dressing General Eval Lower Body Dressing Ability Maximum Assistance Areas Needing Assistance Underpants/Brief Comments OT Dressing Comments Pt needing assist to catalina brief over her feet and up over her hips. OT ADL-Toileting General Evaluation Toileting Ability Maximum Assistance Areas Needing Assistance Manage Clothing Perform Perineal Hygiene Devices Toileting Assistive Devices Commode Comments OT Toileting Comments One person to stand pt and another to assist for pericare needs as pt unsteady on her feet. M5 OT- IP IADL's Start: 01/02/19 13:05 Freq: Status: Active Protocol: Document 01/04/19 12:27 [facility] (Rec: 01/04/19 12:49 [facility] [id number]) OT-Instrumental Activities of Daily Living Student [employer] Pastor Student [employer] Pastor Comments Pt states know after going home will need assist for IADl needs. M6 OT- IP Functional Cognition Start: 01/02/19 13:05 Freq: Status: Active Protocol: Document 01/05/19 16:25 [facility] (Rec: 01/05/19 16:41 [facility] [id number]) Cognitive Factors Limiting Selfcare Function Cognitive Ability Level of Alertness Alert Patient Orientation Name Age Situation Attention Span Ability Capable of Focused Attention Capable of Sustained Attention Ability to Follow Commands Able to Follow One Step Commands Memory Description Short Term Impaired Safety Awareness Decreased Ability to Apply Precautions Underestimates Need for Assistance Problem Solving Ability Needs Assist to Identify Solutions Cognitive Comments Cognitive Assessment Comments Pt not as groggy today and able to follow back precautions better. M7 OT- IP Mobility and Balance Start: 01/02/19 13:05 Freq: Status: Active Protocol: Document 01/05/19 16:25 [facility] (Rec: 01/05/19 16:41 [facility] [id number]) OT- Bed Mobility Assessment Rolling Type of Rolling Roll to Right Level of Assistance Minimal Assistance 1 Person Assistance Bedrails Supine to Sit Supine to Sit Assist Minimal Assistance OT-Transfer Assessment Sit to and From Stand Sit to and from Stand Moderate Assistance 1 Person Assistance Transfers Transfer Ability Minimal Assistance 1 Person Assistance Technique Transfer Destination Bedside Commode Chair Transfer Technique Stand Step Pivot Devices Transfer Assistive Devices Gait Belt Front Wheeled Walker Comments Mobility Comments MODA to stand from bed and BSC , once upright MINAwith FWW, pt a bit unsteady as did not have AFL on for transfer. Pt did not want to go through the trouble of putting AFO on at this time but would if going for a walk. OT- Balance Assessment Sitting Balance and Reactions Static Sitting Balance Ability Good Standing Balance and Reactions Static Standing Balance Ability Fair M8 OT- IP Objective Assessments Start: 01/02/19 13:05 Freq: Status: Active Protocol: Document 01/04/19 12:27 [facility] (Rec: 01/04/19 12:49 [facility] [id number]) OT Gross Range of Motion Upper Extremity Range of Motion Assessment Right Impaired ROM Impairments Right ARm rotator cuff tear per pt and only able to raise arm to 70 degrees shoulde flexion. OT Strength Comments Strength Comments Decreased due to arthritis. OT- Coordination Assessment Comments Coordination Comments Arthritic changes in hands. Increased time to catalina socks onto sock aid. M9 OT- IP Assessment and Plan Start: 01/02/19 13:05 Freq: Status: Active Protocol: Document 01/05/19 16:25 [facility] (Rec: 01/05/19 16:41 [facility] [id number]) OT Summary Assessment and Plan Potential Rehabilitation Potential Good Analytic Complexity at Evaluation Low Summary OT Impairments Pain Strength Balance Coordination Functional Cognition Functional Mobility Grooming Dressing Toileting Bathing Toilet Transfers Shower Transfers Progress Towards Goals Slow Progress due to Activity Tolerance Slow Progress due to Cognition Assessment Summary Pt improving with functional mobility and now aware of back precautions. Pt still benefit form skilled rehab prior to going home. Goals Grooming Goal Standby Assistance Dressing Goal Moderate Assistance Toileting Goal Minimal Assistance Bathing Goal Minimal Assistance Toilet Transfer Goal Standard Toilet Shower Transfer Goal Minimal Assistance Patient/Caregiver Education Goal Demonstrate Post-Op Precautions Days to Meet Goals 4 Frequency of Treatment Frequency Of Treatment Once a Day Treatment Plan OT Treatment Plan ADL Training Functional Cognition Training Functional Mobility Patient/Family Education Discharge Planning Discharge Recommendations OT Discharge Recommendations SNF Rehab Home Equipment Needs BSC, sock aid
[2019-01-05 16:48] VITALS: BP 154/81; PULSE 88; RESP 14; TEMP 37.1; O2SAT 97
[2019-01-05 20:42] VITALS: BP 140/68; PULSE 98; RESP 14; TEMP 37.2; O2SAT 95
[2019-01-05] MEDS: SENNOSIDES 8.6 MG TABLET 17.2 MG PO (22:43)
[2019-01-05] MEDS: SODIUM CHLORIDE 0.9% FLUSH 10 ML IV (22:44)
--- NOTE | 2019-01-05 23:29 | PC.NURSE ---
Alyssa shift note: Patient awake, alert and pleasant. Up out of bed to BSC, voiding. Pain controlled with Oxycodone 10 PRN. Hemovac removed. Calls appropriately for staff assistance.
[2019-01-05] MEDS: MAG HYDROX/ALUM/SIMETH 30 ML UDC PO (23:53)
[2019-01-05 23:59] VITALS: BP 168/83; PULSE 92; RESP 18; TEMP 37.2; O2SAT 96
[2019-01-06] VITALS (7 sets, daily range): BP systolic 136–193; BP diastolic 70–94; PULSE 87–101; RESP 16–18; TEMP 36.6–37; O2SAT 94–98
[2019-01-06] MEDS: OXYCODONE IR 5 MG TABLET 10 MG PO ×4 (07:02→20:49)
[2019-01-06] MEDS: diphenhydrAMINE 25 MG TABLET PO (07:03)
[2019-01-06] MEDS: DOCUSATE 100 MG CAPSULE PO ×2 (09:36→20:49)
[2019-01-06] MEDS: CELECOXIB 200 MG CAPSULE PO ×2 (09:36→20:49)
[2019-01-06] MEDS: GABAPENTIN 400 MG CAPSULE PO ×4 (09:36→20:49)
--- NOTE | 2019-01-06 10:51 | PM.PNPO.1 ---
Subjective Date Patient Seen: 01/06/19 Time Patient Seen: 10:51 Interval history: Patient reports she is doing quite well overall. Plans to discharge to [facility] facility tomorrow. Exam Vital Signs (past 8 hours): - 01/06/19 06:03 01/06/19 10:00 Temperature 98.3 F 97.8 F Pulse Rate 101 H 87 Respiratory Rate 16 16 Blood Pressure 142/82 H 151/82 H Pulse Oximetry 97 96 Oxygen Delivery Method Room Air Oxygen Flow Rate 0 Narrative Exam Narrative: Dressing is clean and dry. Lower extremities are neurovascularly intact. Patient is sitting comfortably in bed. Objective Labs Result Diagrams: 01/05/19 06:30 Assessment & Plan Post-op Postoperative Procedures Operation Date: 01/01/19 07:45 Actual Procedures Side Surgeon p L1-2,L2-3 Anterior Instru. fusion, L4-5,L5-S1 Posterior Instru. fusion, L3-4 Lamincetomy Osmar Craven MD Operation Date: 01/03/19 07:45 Actual Procedures Side Surgeon p T12-S1 Posterior Instru. fusion w/bone graft Osmar Craven MD Postoperative status narrative: The patient is progressing as expected after surgery. She will continue with physical therapy. Plan discharge to [facility] facility tomorrow. Quality VTE Deep Vein Thrombosis/Pulmonary Embolism Present on Admission: No
--- NOTE | 2019-01-06 14:15 | PT.IPTN ---
Current Diagnoses Other secondary scoliosis, lumbar region (01/01/19) Spondylolisthesis, lumbar region (01/01/19) Spinal stenosis, lumbar region with neurogenic claudication (01/01/19) Surgery Performed Operation Date: 01/01/19 07:45 Actual Procedures p L1-2,L2-3 Anterior Instru. fusion, L4-5,L5-S1 Posterior Instru. fusion, L3-4 Lamincetomy - Osmar Craven MD Operation Date: 01/03/19 07:45 Actual Procedures p T12-S1 Posterior Instru. fusion w/bone graft - Osmar Craven MD Physical Therapy Treatment Note M2 PT-IP Current Condition Start: 01/02/19 13:44 Freq: NEEDED Status: Active Protocol: Document 01/03/19 15:30 AB (Rec: 01/03/19 16:58 AB [id number]) Physical Therapy Current Condition Current Condition Evaluation Date 01/03/19 Treatment Diagnosis s/p T12-L4 post fusion/ instrumentation; difficulty in walking Onset Date 01/01/19 Precautions Lumbar Precautions Log Roll No Twisting Limit Bending Lifting Restriction of 10 lbs Gait Belt above Incisional Area Other Precautions Falls M3 PT-IP Subjective Start: 01/02/19 13:44 Freq: NEEDED Status: Active Protocol: Document 01/06/19 14:15 [facility] (Rec: 01/06/19 19:26 [facility] [email or web address]) Subjective Physical Therapy Visit Type Type Treatment Note Visit Start Time 14:15 Visit Stop Time 14:35 Total Visit Minutes 20 Notes pt refused a.m. session d/t pain Number of SPECIAL EVENTS DIRECTOR Visits 0 Physical Therapy Visit Comments Patient Comments pt states that she is doing well M4 PT-IP Mobility and Gait Start: 01/02/19 13:44 Freq: NEEDED Status: Active Protocol: Document 01/06/19 14:15 [facility] (Rec: 01/06/19 19:26 [facility] [email or web address]) PT-Transfer Assessment Sit to and From Stand Sit to and from Stand Contact Guard Assistance Equipment Transfer Assistive Device Gait Belt Front Wheeled Walker Transfers Transfer Destination Chair Transfer Ability Level of Assist Contact Guard Assistance Gait Assessment Gait Gait Assistance Required: Contact Guard Assist Distance (Feet) 75 Assistive Devices Assistive Device Gait Belt Front Wheeled Walker Gait Deviations General Gait Pattern Antalgic Decreased Stride Length Decreased Feet Clearance Factors Limiting Gait Function Factors Limiting Gait Function Decreased Activity Tolerance Decreased Strength Limited Range of Motion Pain Poor Balance Poor Safety Awareness Comments Gait Comments AFO M5 PT-IP Objective Assessments Start: 01/02/19 13:44 Freq: NEEDED Status: Active Protocol: Document 01/03/19 15:30 AB (Rec: 01/03/19 16:58 AB [id number]) Orientation Orientation/Cognition Level of Alertness Alert Orientation Name Place Situation Safety Awareness Decreased Safety Awareness Memory Description Short Term Impaired Gross Range of Motion Lower Extremity ROM Assessment Right Impaired Impairments decrease R ankle DF Strength Lower Extremity Strength Assessment Right Impaired Knee 3+/5 Ankle 3-/5 Sensation Assessment Sensation Gross Sensation WNL Muscle Tone Muscle Tone WNL Yes M6 PT-IP Treatment Start: 01/02/19 13:44 Freq: NEEDED Status: Active Protocol: Document 01/05/19 14:35 GGD (Rec: 01/05/19 14:42 GGD [id number]) Physical Therapy Treatment Education Education Provided Precautions M7 PT-IP Assessment and Plan Start: 01/02/19 13:44 Freq: NEEDED Status: Active Protocol: Document 01/06/19 14:15 [facility] (Rec: 01/06/19 19:26 [facility] [email or web address]) PT Summary Assessment and Plan Summary Assessment Summary Pt still with decreased foot clearance throughout gait, which increases her risk for falls. Overall, pt is improving but still not safe to return home. The burden of care is too high at this point . Goals Bed Mobility Goal Contact Guard Assistance Transfer Goal Contact Guard Assistance Front Wheeled Walker Gait Goal Contact Guard Assistance Front Wheel Walker Gait Distance 100 Other Goals up/down 3 steps L rail ascending CGA Days to Meet Goals 5 Frequency of Treatment Frequency Of Treatment Twice a Day Recommendations To Nursing Amount of Assist Needed 2 Person Assist Discharge Recommendations PT Discharge Recommendations SNF Rehab
[2019-01-06] MEDS: SODIUM CHLORIDE 0.9% FLUSH 10 ML IV ×2 (14:32→21:59)
--- NOTE | 2019-01-06 15:40 | PC.NURSE ---
Pt ambulated out in halls with pt earlier. Given pruine juice cocktail for o bm. Passed on to the evening shift RN and if pt wants a suppository it is available. Dressing to lower back cdi.
[2019-01-06] MEDS: hydroCHLOROthiazide 12.5 MG CAPSULE PO (17:07)
[2019-01-06] MEDS: LISINOPRIL 10 MG TABLET PO (17:07)
[2019-01-06] MEDS: SENNOSIDES 8.6 MG TABLET 17.2 MG PO (20:50)
[2019-01-07] MEDS: MAGNESIUM HYDROXIDE 30 ML UDC PO (02:11)
[2019-01-07] MEDS: OXYCODONE IR 5 MG TABLET 10 MG PO ×3 (02:11→13:40)
[2019-01-07] MEDS: hydrOXYzine pamoate 25 MG CAPSULE PO (02:12)
--- NOTE | 2019-01-07 02:27 | PC.NURSE ---
Pt believes she has not had a BM for 6 days. She has declined a Docusate suppository and an edema. +BT and flatus present.
[2019-01-07] MEDS: LEVOTHYROXINE 50 MCG TABLET PO (06:04)
[2019-01-07] MEDS: PANTOPRAZOLE 20 MG TABLET PO (06:04)
[2019-01-07 06:18] VITALS: BP 126/82; PULSE 90; RESP 16; TEMP 37.3; O2SAT 97
--- NOTE | 2019-01-07 07:27 | PM.PNPO.1 ---
Subjective Date Patient Seen: 01/07/19 Time Patient Seen: 07:27 Interval history: She is doing better. Pain is about 5/10. She does get some anterior left thigh pain when she flexes up the hip but otherwise it is all back pain. Exam Vital Signs (past 8 hours): - 01/07/19 06:18 Temperature 99.1 F Pulse Rate 90 Respiratory Rate 16 Blood Pressure 126/82 Pulse Oximetry 97 Oxygen Delivery Method Room Air Oxygen Flow Rate 0 Const Orientation: alert and oriented x3 Back/Spine/Pelvis Other: CDI. 5/5 motor both lower extremities. Objective Labs Result Diagrams: 01/05/19 06:30 Assessment & Plan Post-op Postoperative Procedures Operation Date: 01/01/19 07:45 Actual Procedures Side Surgeon p L1-2,L2-3 Anterior Instru. fusion, L4-5,L5-S1 Posterior Instru. fusion, L3-4 Lamincetomy Osmar Craven MD Operation Date: 01/03/19 07:45 Actual Procedures Side Surgeon p T12-S1 Posterior Instru. fusion w/bone graft Osmar Craven MD she is doing well. Continue mobilization. Discharged longterm facility today. Quality VTE Deep Vein Thrombosis/Pulmonary Embolism Present on Admission: No
--- NOTE | 2019-01-07 07:28 | PM.DS.1 ---
History of Present Illness Date Patient Seen: 01/07/19 Time Patient Seen: 07:28 Chief complaint: Extreme Lat Interbody Fusion/Laminectomy Narrative: 73-year-old female with spinal stenosis and scoliosis. Discharge Providers Date of admission: 01/01/19 06:21 Discharge Date: 01/07/19 Primary care physician: Steven Pérez MD Consults: 01/03/19 13:16 Consult to Occupational Therapy Evaluate & Treat Comment: Physician Instructions: Evaluate and treat Consult to Physical Therapy Evaluate & Treat Comment: Physician Instructions: Evaluate and Treat Discharge provider: Osmar Craven MD Summary Discharge Diagnosis: Lumbar stenosis with radiculopathy Lumbar scoliosis Hospital Course: She is brought to the operating room on 01/01/19 she underwent a L1-2 and L2-3 anterior fusion as well as a posterior L3 through S1 laminectomy and L4-5 and L5-S1 TLIF. She return to the operating room 2 days later on 01/03/2019 where she underwent 3 remainder of her 2nd half of her procedure with an instrumented posterior fusion from T12 through S1. Postoperatively she progressed with physical therapy. She did have some acute blood loss anemia but was asymptomatic from this and stabilized. This did not require transfusion. On postoperative day 4. After the 2nd surgery she was stable for discharge to the skilled rehab center. Status at Discharge Cognitive/behavioral status at discharge: oriented Functional status at discharge: uses cane/walker Overall status at discharge: patient is progressing back to baseline Exam Vital Signs (past 8 hours): - 01/07/19 06:18 Temperature 99.1 F Pulse Rate 90 Respiratory Rate 16 Blood Pressure 126/82 Pulse Oximetry 97 Oxygen Delivery Method Room Air Oxygen Flow Rate 0 Const Orientation: alert and oriented x3 Back/Spine/Pelvis Other: Dressing CDI. 5/5 motor both lower extremities. Objective Labs Result Diagrams: 01/05/19 06:30 Discharge Plan Discharge Plan Patient Disposition: SNF Transfer to: [facility] Under care of provider: Dr Paris Transportation: Wheelchair Consult as needed: Dental, Hearing, Mental health, Podiatry and Vision Discharge comment: f/u 1.5 wks with Merissa I certify the postop hospital longterm care is medically necessary on a continuing basis for any conditions for which he/ she received care during this hospitalization.: Yes The receiving facility has agreed to accept transfer and provide medical treatment.: Yes Discharge Med Rec/Prescriptions Prescriptions: New celecoxib 200 mg capsule 200 mg PO BID Qty: 60 RF: 0 hydroxyzine pamoate 25 mg Capsule 25 mg PO Q4HR PRN (Reason: spasms) Qty: 30 RF: 0 oxycodone 5 mg Tablet See Rx Instructions .ROUTE .COMPLEX PRN (Reason: Pain, Moderate (4-6)) Qty: 80 RF: 0 Continued CHOLECALCIFEROL (VITAMIN D3) (Vitamin D3) 1 iu PO Q DAY Qty: 0 RF: 0 [B12 COMPLEX] 1 tab PO Q DAY Qty: 0 RF: 0 aspirin 81 MG tablet,delayed release (DR/EC) 81 mg PO QDAY Qty: 0 RF: 0 levothyroxine [Synthroid] 50 MCG tablet 0.05 mg PO QDAY Qty: 0 RF: 0 lisinopril-hydrochlorothiazide 10 MG/12.5 MG tablet 1 tab PO QDAY Qty: 0 RF: 0 omeprazole 20 MG capsule,delayed release(DR/EC) 20 mg PO QDAY Qty: 0 RF: 0 acetaminophen [Tylenol Extra Strength] 500 mg Tablet 1,000 mg PO DAILY PRN (Reason: pain) RF: 0 gabapentin 100 mg Capsule 400 mg PO 4-6XD RF: 0 Discontinued diclofenac sodium 100 mg Tablet Extended Release 24 Hr 100 mg PO BID RF: 0 Follow up/Referrals: Steven Pérez MD [Primary Care Provider] - Discharge Health Status Multidrug resistant organism: No MDRO Precautions: [place] Provider Discharge Instructions Diet: Diet as Tolerated Food texture: Regular Diet comment: regular Activity: limited BLT 10 lbs max Skin/Wound/Dressing Care Dressing: may change dressing and shower on 01/08/19 Special Rehabilitation Services Reason for rehabilitation: Post-operative therapy Rehab type: Physical therapy and Occupational therapy Visit Report/Discharge Packet Instructions: DI for Laminectomy, DI for Lateral Lumbar Interbody Fusion Stand Alone Forms: Surgery Discharge Discharge Data Primary Care Provider: Steven Pérez Attending Provider: Osmar Craven Admit Date/Time: 01/01/19 06:21 Quality VTE Deep Vein Thrombosis/Pulmonary Embolism Present on Admission: No
[2019-01-07] MEDS: CELECOXIB 200 MG CAPSULE PO (08:29)
[2019-01-07] MEDS: hydroCHLOROthiazide 12.5 MG CAPSULE PO (08:29)
[2019-01-07] MEDS: LISINOPRIL 10 MG TABLET PO (08:29)
[2019-01-07] MEDS: GABAPENTIN 400 MG CAPSULE PO (08:29)
[2019-01-07] MEDS: DOCUSATE 100 MG CAPSULE PO (08:29)
[2019-01-07] MEDS: ACETAMINOPHEN 325 MG TABLET 650 MG PO (08:31)
[2019-01-07] MEDS: SODIUM CHLORIDE 0.9% FLUSH 10 ML IV (08:31)
[2019-01-07 10:00] VITALS: BP 142/60; PULSE 86; RESP 16; TEMP 36.5; O2SAT 97
[2019-01-07] MEDS: BISACODYL 10 MG SUPP PR (11:15)
--- NOTE | 2019-01-07 14:02 | PC.NURSE ---
Addendum entered by Malorie Goodman R.N. 01/07/19 14:27: Low back surgical dressing removed (it had rolled up at bottom edge with jigar exposed), replaced with Coversite dressings. Parallel incisions on either side of spine are well-approximated and without active drainage, bleeding or s/sx infectious process. Given pain meds prior to transfer. Transfer packet given to staff, taken out to transport vehicle via wheelchair. Original Note: Transfer to SNF: IV dc'd intact. Chart packet prepared, including scripts for Vistaril, Oxycodone and Celebrex. Report called to Flavia at [facility]. Informed Flavia that patient, before today, had not had a BM since 12/30. She got a suppository this morning and did have a small BM for us after lunch. All belongings collected and ready to send with patient. Patient resting in bed, trying to nap a bit before transport. Call light in reach, bed alarm on.
== END 2019-01-07 14:32 | DRG 454 ==
PROVIDERS: Admitting Provider Orthopaedic Surgery; PCP Family Medicine Geriatric Medicine; Visit Provider Orthopaedic Surgery
PROC: 0SG00A0 Fusion of Lumbar Vertebral Joint with Interbody Fusion Device, Anterior Approach, Anterior Column, Open Approach (ICD-10-PCS; CPT 22558; principal; 2019-01-01 07:45)
PROC: 0RGA071 Fusion of Thoracolumbar Vertebral Joint with Autologous Tissue Substitute, Posterior Approach, Posterior Column, Open Approach (ICD-10-PCS; principal; 2019-01-03 07:45)
DX: M48.062 Spinal stenosis, lumbar region with neurogenic claudication (principal); D62 Acute posthemorrhagic anemia; M43.16 Spondylolisthesis, lumbar region; M41.86 Other forms of scoliosis, lumbar region; M21.372 Foot drop, left foot; G40.909 Epilepsy, unspecified, not intractable, without status epilepticus; E03.9 Hypothyroidism, unspecified; I10 Essential (primary) hypertension; D32.0 Benign neoplasm of cerebral meninges; Z87.891 Personal history of nicotine dependence
CPT/HCPCS: 36415; 72110; 76000; 85014; 85018; 86850; 86900; 86901; 94762; 97116; 97162; 97165; 97530; 97535; C1776; C1788; J0330; J0595; J0690; J1100; J1170; J2060; J2274; J2405; J2704; J3010

== ENCOUNTER → 2019-01-09 08:16 | Outpatient (REF) | payer SELFPAY ==
[2019-01-01 06:45] VITALS: BMI 29.2
[2019-01-09 09:21] LABS: Add Manual Diff / Slide Review NO; Basophils Absolute Auto 100 /uL (0-100); Eosinophils Absolute Auto 200 /uL (0-450); Eosinophils Percent Auto 3.4 % (2-4); Hematocrit 24.2 % (36-46); Hemoglobin 8.1 g/dL (12.0-16.0); Lymphocytes Absolute Auto 1000 /uL (1100-4500); Lymphocytes Percent Auto 15.8 % (25-40); Mean Corpuscular HGB Conc 33.4 % (30-36); Mean Corpuscular Hemoglobin 27.1 PG (26-34); Mean Corpuscular Volume 81.3 fL (80-100); Monocytes Absolute Auto 700 /uL (0-900); Monocytes Percent Auto 12.1 % (3-14); Neutrophils Absolute Auto 4200 /uL (1500-7000); Neutrophils Percent Auto 67.7 % (50-75); Platelet Count 376 X10^3/uL (150-400); Red Blood Cell Count 2.98 X10^6/uL (4.0-5.2); Red Cell Distribution Width 20.7 % (11.6-14.8); White Blood Cell Count 6.2 X10^3/uL (4.5-11.0)
[2019-01-09 09:43] LABS: Blood Urea Nitrogen 13 mg/dL (7-17); Calcium 8.4 mg/dL (8.4-10.2); Carbon Dioxide 28 mmol/L (22-32); Chloride 93 mmol/L (98-107); Estimated Glomerular Filt Rate > 60.0 mL/min (>60); Glucose 104 mg/dL (80-110); HEMOLYSIS < 15 (0-50); Potassium 3.9 mmol/L (3.4-5.1); Sodium 129 mmol/L (137-145)
[2019-01-09 10:12] LABS: Thyroid Stimulating Hormone 2.52 uIU/mL (0.47-4.68)
[2019-01-09 10:17] LABS: Anisocytosis 1+
== END ==
LOC: LAB 08:16
PROVIDERS: PCP Family Medicine Geriatric Medicine; Visit Provider Hospitalist
DX: E03.9 Hypothyroidism, unspecified (principal)
CPT/HCPCS: 36415; 80048; 84443; 85025

== ENCOUNTER → 2019-01-11 14:15 | Outpatient (REF) | payer SELFPAY ==
[2019-01-01 06:45] VITALS: BMI 29.2
[2019-01-11 14:17] LABS: RBC Urine None Seen (0-5/HPF)
[2019-01-11 14:21] LABS: Appearance Urine UA CLEAR; Bilirubin Urine UA NEGATIVE (NEGATIVE); Color Urine UA YELLOW; Glucose Urine UA NEGATIVE (Negative); Ketones Urine UA NEGATIVE (NEGATIVE); Leukocyte Esterase Urine UA NEGATIVE (NEGATIVE); Nitrite Urine UA NEGATIVE (Negative); Occult Blood Urine UA NEGATIVE (Negative); Protein Urine UA NEGATIVE (Negative); Specific Gravity Urine UA 1.015 (1.000-1.035); Urobilinogen Urine UA 0.2 E.U./dL (0.2)
[2019-01-11 14:29] LABS: Amorphous Sediment Urine 1+; Bacteria Urine Few (2-10); Culture Indicated Urine Specimen Cultured; Squamous Epithelial Cell Urine 5-10 /HPF; WBC Urine 5-10/HPF (0-5/HPF)
== END ==
LOC: LAB 14:15
PROVIDERS: PCP Family Medicine Geriatric Medicine; Visit Provider Hospitalist
DX: Z95.1 Presence of aortocoronary bypass graft (principal); R39.15 Urgency of urination; R10.30 Lower abdominal pain, unspecified
CPT/HCPCS: 81001; 87077; 87086; 87186

== ENCOUNTER → 2019-01-13 13:52 | Outpatient (REF) | payer SELFPAY ==
[2019-01-01 06:45] VITALS: BMI 29.2
[2019-01-13 13:57] LABS: Bacteria Urine None Seen; RBC Urine None Seen (0-5/HPF); WBC Urine None Seen (0-5/HPF)
[2019-01-13 14:00] LABS: Appearance Urine UA CLEAR; Bilirubin Urine UA NEGATIVE (NEGATIVE); Color Urine UA YELLOW; Glucose Urine UA NEGATIVE (Negative); Ketones Urine UA NEGATIVE (NEGATIVE); Leukocyte Esterase Urine UA NEGATIVE (NEGATIVE); Nitrite Urine UA NEGATIVE (Negative); Occult Blood Urine UA NEGATIVE (Negative); Protein Urine UA NEGATIVE (Negative); Urobilinogen Urine UA 0.2 E.U./dL (0.2)
[2019-01-13 14:38] LABS: Culture Indicated Urine Cult Not Indicated
== END ==
LOC: LAB 13:52
PROVIDERS: PCP Family Medicine Geriatric Medicine; Visit Provider Hospitalist
DX: R82.90 Unspecified abnormal findings in urine (principal)
CPT/HCPCS: 81001

== ENCOUNTER → 2019-10-16 09:43 | Outpatient (CLI) | payer MEDICARE, SELFPAY ==
[2019-01-01 06:45] VITALS: BMI 29.2
--- NOTE | 2019-10-16 | DI.MRI.S_ITS ---
PROCEDURE: MR HEAD/BRAIN WO/W CON INDICATIONS: Benign neoplasm of meninges, unspecified TECHNIQUE: Noncontrast axial T1 spin echo, axial T2 fast spin echo, sagittal and axial FLAIR, coronal T2 fast spin echo, axial gradient echo, axial diffusion and ADC through the brain. After the administration of contrast, axial and coronal T1 spin echo with fat saturation through the brain. COMPARISON: None available to time of this dictation. FINDINGS: Image quality: Excellent. CSF spaces: Basal cisterns are patent. No extra-axial fluid collections. Ventricles are normal in size and shape. Brain: There is an extra-axial mass seen along the left frontal dura anteriorly in superiorly, measuring 3.9 x 1.8 cm in greatest axial dimension, with a craniocaudal extent of 2.2 cm. Mass effect can be seen on the adjacent left frontal lobe, with minimal displacement of the falx to the right side. Moderate, irregular enhancement can be seen within this lesion. On diffusion-weighted images, this demonstrates increased diffusion weighted signal with decreased signal on ADC map, which is suggestive of a highly cellular tumor. Changes of encephalomalacia can be seen involving both medial frontal lobes superiorly. No midline shift. Mild hemosiderin deposition can be seen, which is considered to be within normal limits for postsurgical patient. There is cerebral volume loss for age. There is periventricular white matter chronic small vessel ischemic change. The brainstem appears normal. Diffusion-weighted images demonstrate no acute ischemic insults. No chronic ischemic insults. Normal intravascular flow voids are present. Skull and face: Right sided craniotomy changes are seen. Calvarial marrow is normal in signal. Orbits appear normal. Note is made of bilateral lens replacements. Sinuses: Sinuses and mastoids appear clear. IMPRESSION: There is a 3.9 cm extra-axial mass seen along the left frontal dura superiorly, with mass effect upon the left frontal lobe. This is felt most likely to be related to a meningioma. However, please correlate with known patient history. Prior right-sided craniotomy changes are seen. Dictated by: Abram Esquivel M.D. on 10/16/2019 at 11:06 Approved by: Abram Esquivel M.D. on 10/16/2019 at 11:10
== END ==
PROVIDERS: PCP Family Medicine Geriatric Medicine; Visit Provider Internal Medicine
DX: D32.9 Benign neoplasm of meninges, unspecified (principal)
CPT/HCPCS: 70553; A9579

== ENCOUNTER → 2020-04-20 10:40 | Outpatient (CLI) | payer MEDICARE, SELFPAY ==
[2019-01-01 06:45] VITALS: BMI 29.2
--- NOTE | 2020-04-20 | DI.MRI.S_ITS ---
PROCEDURE: MR HEAD/BRAIN WO/W CON INDICATIONS: Benign neoplasm of meninges TECHNIQUE: Noncontrast axial T1 spin echo, axial T2 fast spin echo, sagittal and axial FLAIR, coronal T2 fast spin echo, axial gradient echo, axial diffusion and ADC through the brain. After the administration of contrast, axial and coronal T1 spin echo with fat saturation through the brain. COMPARISON: [facility] , MR, BRAIN W&W/O CONTRAST, 11/20/2007, 12:58. [facility], , MR HEAD/BRAIN WO/W CON, 10/16/2019, 10:17. FINDINGS: Image quality: Excellent. CSF spaces: Basal cisterns are patent. No extra-axial fluid collections. Ventricles are normal in size and shape. Brain: No midline shift. There is redemonstration of left parafalcine enhancing mass measuring 3.4 x 1.4 cm, with extra-axial appearance probably reflecting the patient's given clinical history of meningioma. Overall, no change in size since 10/16/19. Additional nodular focus of enhancement measuring 5 mm along the falx on image 117/13 is also unchanged. There is cerebral volume loss for age. There is periventricular white matter chronic small vessel ischemic change. The brainstem appears normal. Diffusion-weighted images demonstrate no acute ischemic insults. No chronic ischemic insults. Normal intravascular flow voids are present. Right craniotomy postsurgical changes. Sinuses: Sinuses and mastoids appear clear. IMPRESSION: Overall, grossly unchanged examination redemonstrating multiple extra-axial enhancing lesions presumably clinically reported history of meningiomas, stable since 10/16/19 Dictated by: Bud Payton M.D. on 04/20/2020 at 11:53 Approved by: Bud Payton M.D. on 04/20/2020 at 11:59
--- NOTE | 2020-04-20 10:42 | DI.RAD.S_ITS ---
PROCEDURE: XR SHOULDER RT MIN 2V INDICATIONS: Right shoulder pain TECHNIQUE: 3 views of the shoulder were acquired. COMPARISON: [facility], NANCY, XR SHOULDER 2+ VIEWS RIGHT, 10/05/2017, 10:55. FINDINGS: Bones: No fractures or dislocations. No suspicious bony lesions. Visualized ribs appear intact. Severe glenohumeral joint degeneration a [id number] appearance, sclerosis and chronic deformity. There is also degenerative change at the AC joint. Soft tissues: No suspicious soft tissue calcifications. IMPRESSION: Severe right shoulder joint degeneration, progressed since 10/05/17. Dictated by: Bud Payton M.D. on 04/20/2020 at 12:58 Approved by: Bud Payton M.D. on 04/20/2020 at 13:01
== END ==
PROVIDERS: PCP Family Medicine Geriatric Medicine; Referring Provider Physician Assistant Medical; Visit Provider Physician Assistant Medical
DX: D32.9 Benign neoplasm of meninges, unspecified (principal); M25.511 Pain in right shoulder; M19.011 Primary osteoarthritis, right shoulder
CPT/HCPCS: 70553; 73030; 99214

== ENCOUNTER → 2020-06-29 10:30 | Outpatient (CLI) | payer MEDICARE, SELFPAY ==
[2019-01-01 06:45] VITALS: BMI 29.2
--- NOTE | 2020-06-29 10:35 | DI.RAD.S_ITS ---
PROCEDURE: XR CERVICAL SPINE 4V OR 5V INDICATIONS: Status post cervical fusion right-sided cervicalgia. TECHNIQUE: 5 views of the cervical spine acquired. COMPARISON: None. FINDINGS: Bones: Patient is status post anterior fusion of cervical spine at C4 through C7 levels with intervertebral spacer placement. Straightening of normal cervical lordosis is seen. No acute fracture or dislocation. Degenerative endplate changes are noted at C2-3 and C3-4 levels. No gross hardware loosening or failure. Oblique images demonstrate left worse than right bilateral bony foraminal stenosis at C3-4 level. Soft tissues: No prevertebral soft tissue swelling. IMPRESSION: Postfusion changes at C4 through C7 levels . No acute fracture or dislocation. No gross hardware complication. Suggestion of bilateral bony foraminal Sten at C3-4 level. Dictated by: Sánchez Lozano M.D. on 06/29/2020 at 11:17 Approved by: Sánhcez Lozano M.D. on 06/29/2020 at 11:19
--- NOTE | 2020-06-29 10:35 | DI.RAD.S_ITS ---
PROCEDURE: XR SHOULDER LT MIN 2V INDICATIONS: Shoulder impingement. TECHNIQUE: 3 views of the shoulder were acquired. COMPARISON: [facility], CR, XR SHOULDER RT MIN 2V, 04/20/2020, 10:41. FINDINGS: Bones: No acute fractures or dislocations. Mild degenerative changes of the left glenohumeral and acromioclavicular joints. Coracoclavicular and acromioclavicular intervals are maintained. No suspicious bony lesions. Visualized ribs appear intact. Status post prior ACDF. Soft tissues: No suspicious soft tissue calcifications. 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 Soft tissue calcifications suggestive of chronic calcific rotator cuff tendinopathy. Dictated by: Raz Bella M.D. on 06/29/2020 at 12:14 Approved by: Raz Bella M.D. on 06/29/2020 at 12:16
--- NOTE | 2020-06-29 10:35 | DI.MRI.S_ITS ---
PROCEDURE: MR CERVICAL SPINE WO CON INDICATIONS: Status post cervical fusion right-sided cervicalgia TECHNIQUE: Noncontrast sagittal T1 spin echo and T2 fast spin echo, sagittal STIR, foraminal oblique sagittal T2 fast spin echo, and axial gradient echo or T2 fast spin echo through the cervical spine. COMPARISON: None. FINDINGS: Image quality: Excellent. Alignment and Curvature: Postsurgical changes of C3-C7 ACDF with anterior plate and screws along with interbody devices. There appears to be mature osseous fusion between C4 and C5 vertebral bodies as well as between the C6 and C7 vertebral bodies. No convincing evidence of fusion at C3-C4 or at C5-C6 vertebral bodies. Straightening of the usual cervical lordosis, particularly at the operative levels. Anterolisthesis of C3 on C4 measuring approximately 3 millimeters and of C7 on T1 measuring approximately 2 millimeters. Otherwise normal alignment. Vertebral body heights maintained. Bone Marrow: No suspicious focal marrow signal abnormality. No significant marrow edema. Spinal Cord: No cord signal abnormality or syrinx. No inferior cerebellar tonsillar ectopia. Regional Soft Tissues: Prevertebral and paraspinous soft tissues are within normal limits. C2-C3: Posterior disc osteophyte complex flattens the ventral cord. Facet and uncovertebral hypertrophy contribute to mild left neural foraminal narrowing. C3-C4: Posterior disc osteophyte complex flattens the ventral cord. Buckling of the ligamentum flavum flattens the cord posteriorly. CSF surrounding the cord is entirely effaced. Overall there is moderate spinal canal stenosis. Facet and uncovertebral hypertrophy contribute to moderate-severe bilateral neural foraminal stenosis. C4-C5: Posterior disc osteophyte complex without mass effect upon the cord. Mild neural foraminal narrowing bilaterally related to facet and uncovertebral hypertrophy. C5-C6: Posterior disc osteophyte complex without mass effect upon the cord. Facet and uncovertebral hypertrophy contribute to mild bilateral neural foraminal stenosis. C6-C7: Posterior disc osteophyte complex without mass effect upon the cord. Moderate bilateral neural foraminal stenosis related to facet and uncovertebral hypertrophy. C7-T1: Posterior disc osteophyte complex. Mild bilateral neural foraminal narrowing related to facet and uncovertebral hypertrophy. IMPRESSION: Postsurgical changes of a C3-C7 ACDF with mature osseous fusion between C4-C5 and C6-C7, but not at C3-C4 or C5-C6. No evidence of an acute complicating hardware feature. Degenerative changes most pronounced at C3-C4 and C6-C7. Dictated by: Chad Pearce M.D. on 06/29/2020 at 13:39 Approved by: Chad Pearce M.D. on 06/29/2020 at 13:45
--- NOTE | 2020-06-29 10:39 | DI.RAD.S_ITS ---
PROCEDURE: XR SHOULDER RT MIN 2V INDICATIONS: PAIN. TECHNIQUE: 3 views of the shoulder were acquired. COMPARISON: [facility], CR, XR SHOULDER RT MIN 2V, 04/20/2020, 10:41. FINDINGS: Bones: Stable appearance of severe degenerative changes of the right glenohumeral joint with [id number] appearance and moderate sclerosis involving both sides of the joint. Alignment is stable. Moderate degenerative changes of the right acromioclavicular joint. Stable postsurgical changes of prior ACDF. No acute fractures or dislocations. No suspicious bony lesions. Visualized ribs appear intact. Soft tissues: No suspicious soft tissue calcifications. IMPRESSION: Stable radiographic appearance of severe right shoulder joint osteoarthrosis. Dictated by: Raz Bella M.D. on 06/29/2020 at 11:52 Approved by: Raz Bella M.D. on 06/29/2020 at 12:14
== END ==
PROVIDERS: PCP Family Medicine; Referring Provider Family Medicine; Visit Provider Physical Medicine & Rehabilitation
DX: M54.2 Cervicalgia (principal); M47.812 Spondylosis without myelopathy or radiculopathy, cervical region; R51 Headache; M25.812 Other specified joint disorders, left shoulder; M19.011 Primary osteoarthritis, right shoulder; M19.012 Primary osteoarthritis, left shoulder; Z98.1 Arthrodesis status
CPT/HCPCS: 72050; 72141; 73030

== ENCOUNTER → 2020-10-01 09:37 | Outpatient (CLI) | payer MEDICARE, SELFPAY ==
[2019-01-01 06:45] VITALS: BMI 29.2
--- NOTE | 2020-10-01 | DI.MRI.S_ITS ---
PROCEDURE: MR HEAD/BRAIN WO/W CON INDICATIONS: Benign neoplasm of meninges, unspecified TECHNIQUE: Noncontrast axial T1 spin echo, axial T2 fast spin echo, sagittal and axial FLAIR, coronal T2 fast spin echo, axial gradient echo, axial diffusion and ADC through the brain. After the administration of contrast, axial and coronal 3D VIBE or T1 spin echo with fat saturation through the brain. COMPARISON: [facility], MR, MR HEAD/BRAIN WO/W CON, 04/20/2020, 11:13. [facility], MR, MR HEAD/BRAIN WO/W CON, 10/16/2019, 10:17. FINDINGS: Image quality: Excellent. CSF Spaces: Basal cisterns are patent. No extra-axial fluid collections. Ventricles are normal in size and shape. Brain: No midline shift. No new intracranial bleeds or masses. The patient has undergone craniotomy in the past, with postoperative changes stable over time. A lentiform enhancing mass is again noted, stable in size, at the left margin of the anterior falx, superiorly, measuring up to 3.4 cm AP and 1.4 cm transverse. A 2nd 5 mm focus of right parafalcine enhancing nodular mass is present more inferiorly, seen currently on series 13, image 143 and measuring 5 mm as was previously the case. No additional area of abnormal intracranial enhancement. The brainstem appears normal. Diffusion-weighted images demonstrate no acute ischemic insults. No chronic ischemic insults. Normal intravascular flow voids are present. Skull and face: Calvarial marrow is normal in signal. Orbits appear normal. 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 IMPRESSION: 2 foci of presumed residual meningioma are present without change from recent prior MR scans, with the larger more superior anterior left parafalcine mass measuring 3.4 x 1.4 cm and the smaller more inferior right parafalcine mass measuring only 5 mm. No new lesion, no significant mass effect. Dictated by: Nahun Rodas M.D. on 10/01/2020 at 10:44 Approved by: Nahun Rodas M.D. on 10/01/2020 at 10:53
== END ==
PROVIDERS: PCP Family Medicine; Referring Provider Radiology Radiation Oncology; Visit Provider Radiology Radiation Oncology
DX: D32.9 Benign neoplasm of meninges, unspecified (principal)
CPT/HCPCS: 70553

== ENCOUNTER → 2021-04-21 13:05 | Outpatient (CLI) | payer MEDICARE, SELFPAY ==
[2019-01-01 06:45] VITALS: BMI 29.2
--- NOTE | 2021-04-21 | DI.MRI.S_ITS ---
PROCEDURE: MR HEAD/BRAIN WO/W CON INDICATIONS: Benign neoplasm of meninges, unspecified TECHNIQUE: Noncontrast axial T1 spin echo, axial T2 fast spin echo, sagittal and axial FLAIR, coronal T2 fast spin echo, axial gradient echo, axial diffusion and ADC through the brain. After the administration of contrast, axial and coronal T1 spin echo with fat saturation through the brain. COMPARISON: [facility], MR, MR HEAD/BRAIN WO/W CON, 10/01/2020, 9:59. FINDINGS: Image quality: Excellent. CSF spaces: Basal cisterns are patent. No extra-axial fluid collections. Ventricles are normal in size and shape. Brain: No midline shift. No intracranial bleeds. The previously identified left frontal, extra-axial enhancing paramidline mass is unchanged. Stable appearace of similar mass in the right parafalcine region on series 13 image 124. Two additional smaller areas of parafalcine enhacement are noted on series 13 mage 136, unchanged. None of the above described foci demonstrates edema. There is cerebral volume loss for age. There is periventricular white matter chronic small vessel ischemic change. The brainstem appears normal. Diffusion-weighted images demonstrate no acute ischemic insults. No chronic ischemic insults. Normal intravascular flow voids are present. Skull and face: Calvarial marrow is normal in signal. Orbits appear normal. Sinuses: Sinuses and mastoids appear clear. IMPRESSION: 1. Stable appearance of extra-axial masses most suggetive of meningiomas. 2. Moderate atrophy and chronic microvascular ischemic changes. Dictated by: Laura Flores M.D. on 04/21/2021 at 15:00 Approved by: Laura Flores M.D. on 04/21/2021 at 15:22
== END ==
PROVIDERS: PCP Family Medicine; Referring Provider Physician Assistant; Visit Provider Physician Assistant
DX: D32.9 Benign neoplasm of meninges, unspecified (principal)
CPT/HCPCS: 70553

== ENCOUNTER → 2022-01-12 10:32 | Outpatient (CLI) | payer MEDICARE, SELFPAY ==
[2019-01-01 06:45] VITALS: BMI 29.2
--- NOTE | 2022-01-12 | DI.MRI.S_ITS ---
PROCEDURE: MR HEAD/BRAIN WO/W CON INDICATIONS: Benign neoplasm of cerebral meninges TECHNIQUE: Noncontrast axial T1 spin echo, axial T2 fast spin echo, sagittal and axial FLAIR, coronal T2 fast spin echo, axial gradient echo, axial diffusion and ADC through the brain. After the administration of contrast, axial and coronal T1 spin echo with fat saturation through the brain. COMPARISON: [facility], MR, MR HEAD/BRAIN WO/W CON, 10/16/2019, 10:17. [facility], MR, MR HEAD/BRAIN WO/W CON, 04/20/2020, 11:13. [facility], MR, MR HEAD/BRAIN WO/W CON, 10/01/2020, 9:59. [facility], MR, MR HEAD/BRAIN WO/W CON, 04/21/2021, 13:14. FINDINGS: Image quality: Excellent. CSF spaces: Basal cisterns are patent. No extra-axial fluid collections. Ventricles are normal in size and shape. Brain: Resection changes are seen involving the superior medial frontal lobe anteriorly. Volume loss and encephalomalacia can be seen. No findings of abnormal enhancement can be seen within this region. There is again seen an extra-axial mass along the left frontal dura superiorly and anteriorly measuring 3.6 x 1.5 x 2 cm. This mass demonstrates relatively prominent enhancement. A similar appearing lesion can be seen along the left dura more posteriorly, as on series 13, image 143 measuring 10 x 7 x 16 mm. An additional tiny apparent meningioma can be seen more posteriorly on the left, also seen on series 13, image 143 measuring approximately 7 mm. No midline shift. There is cerebral volume loss for age. There is periventricular white matter chronic small vessel ischemic change. The brainstem appears normal. Diffusion-weighted images demonstrate no acute ischemic insults. No chronic ischemic insults. Normal intravascular flow voids are present. Skull and face: Right-sided craniotomy changes are seen. Calvarial marrow is normal in signal. Orbits appear normal. Note is made of bilateral lens replacements. Sinuses: Sinuses and mastoids appear clear. IMPRESSION: Stable left-sided meningiomas. Prior right frontal resection change, which is stable. Dictated by: Abram Esquivel M.D. on 01/12/2022 at 10:26 Approved by: Abram Esquivel M.D. on 01/12/2022 at 10:31
== END ==
PROVIDERS: PCP Family Medicine; Referring Provider Physician Assistant; Visit Provider Physician Assistant
DX: D32.0 Benign neoplasm of cerebral meninges (principal)
CPT/HCPCS: 70553

== ENCOUNTER → 2023-04-26 23:00 | Outpatient (ROUT) | payer MEDICARE, SELFPAY ==
[2023-04-26 23:00] VITALS: BMI 29.2
[2023-04-26 23:28] LABS: Blood Urea Nitrogen 10 mg/dL (7-17); Calcium 8.3 mg/dL (8.4-10.2); Carbon Dioxide 27 mmol/L (22-32); Chloride 98 mmol/L (98-107); Estimated Glomerular Filt Rate > 60 mL/min (>60); Glucose 113 mg/dL (80-110); HEMOLYSIS < 15 (0-50); Potassium 3.4 mmol/L (3.4-5.1); Sodium 129 mmol/L (137-145)
[2023-04-26 23:47] LABS: Alanine Aminotransferase 16 IU/L (<35); Albumin 2.9 g/dL (3.5-5.0); Albumin Globulin Ratio 1.2 (1.0-2.8); Alkaline Phosphatase 64 U/L (38-126); Aspartate Aminotransferase 16 IU/L (14-36); Bilirubin Total 0.4 mg/dL (0.2-1.3); Globulin 2.5 g/dL (1.7-4.1); Total Protein 5.4 g/dL (6.3-8.2)
== END ==
PROVIDERS: PCP Student in an Organized Health Care Education/Training Program; Visit Provider Internal Medicine
DX: C71.9 Malignant neoplasm of brain, unspecified (principal); R33.9 Retention of urine, unspecified; D64.9 Anemia, unspecified; E03.8 Other specified hypothyroidism; F32.A Depression, unspecified; F41.1 Generalized anxiety disorder; F41.9 Anxiety disorder, unspecified; G47.33 Obstructive sleep apnea (adult) (pediatric); I10 Essential (primary) hypertension; K59.00 Constipation, unspecified
CPT/HCPCS: 80053